=== PATIENT | male | born 1980 | race Caucasian/White ===

== ENCOUNTER 2016-11-03 01:16 | Inpatient (IN) | payer MEDICAID ==
[~2016-11-03] VITALS: Ht 170.2 cm; Wt 93.8 kg
[2016-11-03 02:25] LABS: BASOPHILS % (AUTO) 0.5 % (0.0-2.0); EOSINOPHILS % (AUTO) 5.8 % (1.0-6.0); HEMATOCRIT 34.9 % (41-53); HEMOGLOBIN 11.6 g/dL (13.5-17.5); LYMPHOCYTES # (AUTO) 2.5 K/uL (1.0-4.8); LYMPHOCYTES % (AUTO) 27.1 % (22.0-44.0); MEAN CORPUSCULAR HEMOGLOBIN 28.6 pg (26.0-34.0); MEAN CORPUSCULAR HGB CONC 33.3 G/dL (31.0-37.0); MEAN CORPUSCULAR VOLUME 86 fL (80-100); MONOCYTES # (AUTO) 0.6 K/uL (0.1-1.0); MONOCYTES % (AUTO) 6.3 % (2.0-9.0); NEUTROPHILS # (AUTO) 5.5 K/uL (1.8-7.7); NEUTROPHILS % (AUTO) 60.3 % (40.0-70.0); PLATELET COUNT (AUTO) 430 K/uL (150-450); RED BLOOD CELL COUNT(AUTO) 4.06 MIL/uL (4.50-5.90); RED CELL DISTRIBUTION WIDTH 12.9 % (11.5-14.5); WHITE BLOOD COUNT (AUTO) 9.1 K/uL (4.5-11.0)
[2016-11-03 02:34] LABS: PROTHROMBIN TIME 10.2 SEC (9.4-11.6)
[2016-11-03 02:40] LABS: CALCIUM, TOTAL 7.7 mg/dL (8.8-10.5); CREATININE 4.87 mg/dL (0.60-1.30); POTASSIUM 3.4 mmol/L (3.5-5.1)
[2016-11-03] MEDS ORDERED: HydrALAZINE HCL 20 MG/ML VIAL IVP ONE (03:00)
[2016-11-03 03:03] LABS: ALBUMIN 2.4 g/dL (3.4-5.0); BILIRUBIN,TOTAL 0.2 mg/dL (0.1-1.0); CREATINE KINASE MB 12.7 ng/mL (0-5); TOTAL PROTEIN, SERUM 6.2 g/dL (6.4-8.2)
[2016-11-03 04:08] LABS: APPEARANCE,URINE CLOUDY (CLEAR); GLUCOSE, URINE (UA) 100 mg/dL (NEGATIVE); KETONES,URINE NEGATIVE (NEGATIVE); LEUKOCYTE ESTERASE ,URINE NEGATIVE (NEGATIVE); OCCULT BLOOD,URINE LARGE (NEGATIVE); PROTEIN,URINE SEE CONFIRM (NEGATIVE)
[2016-11-03 04:11] LABS: ADD UA MICROSCOPIC YES
[2016-11-03] MEDS ORDERED: AZITHROMYCIN 500 MG/NS 250 ML IV ONE (04:15)
[2016-11-03] MEDS ORDERED: CefTRIAXone 1 GM/DEXTROSE 50 ML IV ONE (04:15)
[2016-11-03 04:27] LABS: RBC,URINE 26-50 /HPF (0-2)
[2016-11-03] MEDS ORDERED: ONDANSETRON HCL 4 MG/2 ML VIAL IVP PRN ×2 (04:30→07:00)
[2016-11-03] MEDS ORDERED: ACETAMINOPHEN 325 MG TABLET PO PRN (04:30)
[2016-11-03 04:34] LABS: SULFOSALICYLIC ACID,URINE 2+ (Negative)
[2016-11-03] MEDS ORDERED: 0.9% SODIUM CHLORIDE 10 ML SYRINGE IVP PRN (07:00)
[2016-11-03] MEDS ORDERED: OxyCODONE HCL/ACETAMINOPHEN 5-325 MG TABLET PO PRN ×2 (07:00)
[2016-11-03] MEDS: PANTOPRAZOLE SODIUM 40 MG/VIAL IVP SCH (08:38)
[2016-11-03] MEDS: DOCUSATE SODIUM 100 MG CAPSULE PO SCH ×2 (08:38→21:00)
[2016-11-03 20:58] VITALS: BP 155/112
[2016-11-03] MEDS ORDERED: AmLODIPine BESYLATE 5 MG TABLET PO SCH (21:30)
[2016-11-03 23:53] VITALS: BP 149/108
[2016-11-04] MEDS ORDERED: SODIUM CHLORIDE 0.9% 250 ML IV ONE (02:27)
[2016-11-04] MEDS: CefTRIAXone 1 GM/DEXTROSE 50 ML IV SCH (03:12)
[2016-11-04] MEDS: AZITHROMYCIN 500 MG/NS 250 ML IV SCH (04:22)
[2016-11-04 04:58] VITALS: BP 138/90
[2016-11-04 06:42] LABS: CALCIUM, TOTAL 8.2 mg/dL (8.8-10.5); CREATININE 4.23 mg/dL (0.60-1.30); POTASSIUM 3.6 mmol/L (3.5-5.1)
[2016-11-04 06:45] LABS: BASOPHILS % (AUTO) 0.4 % (0.0-2.0); EOSINOPHILS % (AUTO) 2.3 % (1.0-6.0); HEMOGLOBIN 11.8 g/dL (13.5-17.5); LYMPHOCYTES # (AUTO) 2.1 K/uL (1.0-4.8); LYMPHOCYTES % (AUTO) 18.4 % (22.0-44.0); MEAN CORPUSCULAR HEMOGLOBIN 28.6 pg (26.0-34.0); MEAN CORPUSCULAR HGB CONC 32.8 G/dL (31.0-37.0); MEAN CORPUSCULAR VOLUME 87 fL (80-100); MONOCYTES # (AUTO) 0.7 K/uL (0.1-1.0); MONOCYTES % (AUTO) 6.4 % (2.0-9.0); NEUTROPHILS # (AUTO) 8.1 K/uL (1.8-7.7); NEUTROPHILS % (AUTO) 72.5 % (40.0-70.0); PLATELET COUNT (AUTO) 446 K/uL (150-450); RED BLOOD CELL COUNT(AUTO) 4.12 MIL/uL (4.50-5.90); RED CELL DISTRIBUTION WIDTH 13.3 % (11.5-14.5); WHITE BLOOD COUNT (AUTO) 11.2 K/uL (4.5-11.0)
[2016-11-04 07:42] VITALS: BP 136/96
[2016-11-04] MEDS: DOCUSATE SODIUM 100 MG CAPSULE PO SCH ×2 (09:00→20:12)
[2016-11-04] MEDS: PANTOPRAZOLE SODIUM 40 MG/VIAL IVP SCH (09:30)
[2016-11-04] MEDS ORDERED: FentaNYL CITRATE-PF 100 MCG/2 ML VIAL ONE (11:46)
[2016-11-04] MEDS ORDERED: MIDAZOLAM HCL 2 MG/2 ML VIAL ONE (11:46)
[2016-11-04] MEDS ORDERED: GELATIN SPONGE,ABSORBABLE 12-7 MM TP ONE (11:46)
[2016-11-04] MEDS ORDERED: MIDAZOLAM HCL 2 MG/2 ML VIAL IVP ONE (11:52)
[2016-11-04] MEDS ORDERED: FentaNYL CITRATE-PF 100 MCG/2 ML VIAL IVP ONE (11:53)
[2016-11-04 12:59] VITALS: BP 166/109
[2016-11-04] MEDS ORDERED: AmLODIPine BESYLATE 5 MG TABLET PO ONE (13:00)
[2016-11-04] MEDS: MethylPREDNISolone SOD SUCC 1,000 MG in SODIUM CHLORIDE 0.9% 50 ML IV SCH (13:46)
[2016-11-04 16:01] VITALS: BP 146/106
[2016-11-04 19:15] VITALS: BP 150/100
[2016-11-04] MEDS: AmLODIPine BESYLATE 5 MG TABLET PO SCH (20:13)
[2016-11-05] VITALS (7 sets, daily range): BP systolic 129–162; BP diastolic 79–101
[2016-11-05] MEDS: CefTRIAXone 1 GM/DEXTROSE 50 ML IV SCH (03:51)
[2016-11-05] MEDS: AZITHROMYCIN 500 MG/NS 250 ML IV SCH (04:52)
[2016-11-05 06:44] LABS: EOSINOPHILS % (AUTO) 0 % (1.0-6.0); HEMATOCRIT 37.1 % (41-53); HEMOGLOBIN 12.3 g/dL (13.5-17.5); LYMPHOCYTES # (AUTO) 0.8 K/uL (1.0-4.8); LYMPHOCYTES % (AUTO) 7.2 % (22.0-44.0); MEAN CORPUSCULAR HEMOGLOBIN 28.6 pg (26.0-34.0); MEAN CORPUSCULAR HGB CONC 33.1 G/dL (31.0-37.0); MEAN CORPUSCULAR VOLUME 86 fL (80-100); MONOCYTES # (AUTO) 0.1 K/uL (0.1-1.0); MONOCYTES % (AUTO) 0.6 % (2.0-9.0); NEUTROPHILS # (AUTO) 10.9 K/uL (1.8-7.7); PLATELET COUNT (AUTO) 454 K/uL (150-450); RED CELL DISTRIBUTION WIDTH 13.1 % (11.5-14.5); WHITE BLOOD COUNT (AUTO) 11.8 K/uL (4.5-11.0)
[2016-11-05 07:14] LABS: NEUTROPHILS % (AUTO) 92.2 % (40.0-70.0); RBC MORPHOLOGY COMMENT NORMAL RBC MORPH
[2016-11-05 07:24] LABS: ALBUMIN 2.5 g/dL (3.4-5.0); BILIRUBIN,TOTAL 0.2 mg/dL (0.1-1.0); CALCIUM, TOTAL 8.4 mg/dL (8.8-10.5); CREATININE 4.52 mg/dL (0.60-1.30); MAGNESIUM 2.2 mg/dL (1.80-2.40); PHOSPHORUS 5.9 mg/dL (2.5-4.9); POTASSIUM 3.9 mmol/L (3.5-5.1); TOTAL PROTEIN, SERUM 6.5 g/dL (6.4-8.2)
[2016-11-05] MEDS: AmLODIPine BESYLATE 5 MG TABLET PO SCH ×2 (08:20→20:35)
[2016-11-05] MEDS: DOCUSATE SODIUM 100 MG CAPSULE PO SCH ×2 (08:23→20:23)
[2016-11-05] MEDS: PANTOPRAZOLE SODIUM 40 MG/VIAL IVP SCH (08:24)
[2016-11-05] MEDS: MethylPREDNISolone SOD SUCC 1,000 MG in SODIUM CHLORIDE 0.9% 50 ML IV SCH (13:03)
[2016-11-06] VITALS (7 sets, daily range): BP systolic 122–147; BP diastolic 64–92
[2016-11-06] MEDS: AZITHROMYCIN 500 MG/NS 250 ML IV SCH (03:08)
[2016-11-06] MEDS: CefTRIAXone 1 GM/DEXTROSE 50 ML IV SCH (03:08)
[2016-11-06 06:13] LABS: COMPLEMENT C3 145 mg/dL (82-167); COMPLEMENT C4 29 mg/dL (14-44)
[2016-11-06 06:46] LABS: BASOPHILS # (AUTO) 0.02 K/uL (0.00-0.20); BASOPHILS % (AUTO) 0.1 % (0.0-2.0); EOSINOPHILS % (AUTO) 0 % (1.0-6.0); HEMATOCRIT 34.8 % (41-53); HEMOGLOBIN 11.8 g/dL (13.5-17.5); LYMPHOCYTES # (AUTO) 0.8 K/uL (1.0-4.8); LYMPHOCYTES % (AUTO) 4.5 % (22.0-44.0); MEAN CORPUSCULAR HEMOGLOBIN 28.9 pg (26.0-34.0); MEAN CORPUSCULAR HGB CONC 33.8 G/dL (31.0-37.0); MEAN CORPUSCULAR VOLUME 85 fL (80-100); MONOCYTES # (AUTO) 0.4 K/uL (0.1-1.0); MONOCYTES % (AUTO) 2.1 % (2.0-9.0); NEUTROPHILS # (AUTO) 16.6 K/uL (1.8-7.7); NEUTROPHILS % (AUTO) 93.3 % (40.0-70.0); PLATELET COUNT (AUTO) 475 K/uL (150-450); RED BLOOD CELL COUNT(AUTO) 4.08 MIL/uL (4.50-5.90); RED CELL DISTRIBUTION WIDTH 13.7 % (11.5-14.5); WHITE BLOOD COUNT (AUTO) 17.8 K/uL (4.5-11.0)
[2016-11-06 06:52] LABS: CALCIUM, TOTAL 8.4 mg/dL (8.8-10.5); CREATININE 4.57 mg/dL (0.60-1.30); MAGNESIUM 2.3 mg/dL (1.80-2.40); PHOSPHORUS 7.1 mg/dL (2.5-4.9); POTASSIUM 4.4 mmol/L (3.5-5.1)
[2016-11-06] MEDS: DOCUSATE SODIUM 100 MG CAPSULE PO SCH ×2 (08:38→20:26)
[2016-11-06] MEDS: PANTOPRAZOLE SODIUM 40 MG/VIAL IVP SCH (08:38)
[2016-11-06] MEDS: AmLODIPine BESYLATE 5 MG TABLET PO SCH ×2 (08:38→20:27)
[2016-11-06] MEDS: LABETALOL HCL 100 MG TABLET PO SCH ×2 (10:49→20:27)
[2016-11-06] MEDS: MethylPREDNISolone SOD SUCC 1,000 MG in SODIUM CHLORIDE 0.9% 50 ML IV SCH (12:18)
[2016-11-06 16:04] LABS: ANTI NUCLEAR AB,DIRECT(SCREEN) Negative (Negative)
[2016-11-07] MEDS: AZITHROMYCIN 500 MG/NS 250 ML IV SCH (03:45)
[2016-11-07] MEDS: CefTRIAXone 1 GM/DEXTROSE 50 ML IV SCH (03:45)
[2016-11-07 05:06] VITALS: BP 123/78
[2016-11-07 06:58] LABS: BASOPHILS % (AUTO) 0.3 % (0.0-2.0); EOSINOPHILS % (AUTO) 0 % (1.0-6.0); HEMATOCRIT 34.2 % (41-53); HEMOGLOBIN 11.2 g/dL (13.5-17.5); LYMPHOCYTES # (AUTO) 0.7 K/uL (1.0-4.8); LYMPHOCYTES % (AUTO) 4.9 % (22.0-44.0); MEAN CORPUSCULAR HEMOGLOBIN 28.7 pg (26.0-34.0); MEAN CORPUSCULAR HGB CONC 32.9 G/dL (31.0-37.0); MEAN CORPUSCULAR VOLUME 87 fL (80-100); MONOCYTES # (AUTO) 0.4 K/uL (0.1-1.0); MONOCYTES % (AUTO) 2.8 % (2.0-9.0); NEUTROPHILS # (AUTO) 12.3 K/uL (1.8-7.7); PLATELET COUNT (AUTO) 445 K/uL (150-450); RED BLOOD CELL COUNT(AUTO) 3.92 MIL/uL (4.50-5.90); RED CELL DISTRIBUTION WIDTH 13.1 % (11.5-14.5); WHITE BLOOD COUNT (AUTO) 13.4 K/uL (4.5-11.0)
[2016-11-07 07:07] LABS: CALCIUM, TOTAL 7.7 mg/dL (8.8-10.5); CREATININE 4.42 mg/dL (0.60-1.30); MAGNESIUM 2.4 mg/dL (1.80-2.40); PHOSPHORUS 8.1 mg/dL (2.5-4.9)
[2016-11-07 07:45] VITALS: BP 115/62
[2016-11-07] MEDS: AmLODIPine BESYLATE 5 MG TABLET PO SCH (08:40)
[2016-11-07] MEDS: DOCUSATE SODIUM 100 MG CAPSULE PO SCH ×2 (08:40→21:00)
[2016-11-07] MEDS: PANTOPRAZOLE SODIUM 40 MG/VIAL IVP SCH (08:40)
[2016-11-07] MEDS: LABETALOL HCL 100 MG TABLET PO SCH ×2 (08:40→21:01)
[2016-11-07 11:34] VITALS: BP 125/77
[2016-11-07] MEDS: PredniSONE 20 MG TABLET PO SCH (13:12)
[2016-11-07 15:14] LABS: ATYPICAL P-ANCA AB <1:20 titer (Neg:<1:20); CYTOPLASMIC (C-ANCA) AB, IGG <1:20 titer (Neg:<1:20); PERINUCLEAR (P-ANCA) IGG AB <1:20 titer (Neg:<1:20)
[2016-11-07 15:25] VITALS: BP 126/80
[2016-11-07 19:38] VITALS: BP 132/86
[2016-11-08 00:09] VITALS: BP 125/82
[2016-11-08 04:22] VITALS: BP 124/76
[2016-11-08] MEDS: AZITHROMYCIN 500 MG/NS 250 ML IV SCH (04:46)
[2016-11-08] MEDS: CefTRIAXone 1 GM/DEXTROSE 50 ML IV SCH (04:46)
[2016-11-08 08:00] VITALS: BP 164/86
[2016-11-08] MEDS ORDERED: AmLODIPine BESYLATE 5 MG TABLET PO SCH (09:00)
[2016-11-08 09:09] LABS: CALCIUM, TOTAL 7.3 mg/dL (8.8-10.5); CREATININE 3.55 mg/dL (0.60-1.30); MAGNESIUM 2.3 mg/dL (1.80-2.40); POTASSIUM 3.5 mmol/L (3.5-5.1)
[2016-11-08] MEDS: DOCUSATE SODIUM 100 MG CAPSULE PO SCH ×2 (09:43→20:19)
[2016-11-08] MEDS: PANTOPRAZOLE SODIUM 40 MG/VIAL IVP SCH (09:43)
[2016-11-08] MEDS: LABETALOL HCL 100 MG TABLET PO SCH ×2 (09:43→20:18)
[2016-11-08] MEDS: PredniSONE 20 MG TABLET PO SCH (09:44)
[2016-11-08 10:59] VITALS: BP 136/75
[2016-11-08 15:14] VITALS: BP 136/74
[2016-11-08 19:37] VITALS: BP 140/83
[2016-11-08] MEDS: AmLODIPine BESYLATE 5 MG TABLET PO SCH (20:18)
[2016-11-09] VITALS (7 sets, daily range): BP systolic 137–146; BP diastolic 86–96
[2016-11-09] MEDS: CefTRIAXone 1 GM/DEXTROSE 50 ML IV SCH (03:11)
[2016-11-09] MEDS: AZITHROMYCIN 500 MG/NS 250 ML IV SCH (04:06)
[2016-11-09 07:41] LABS: CALCIUM, TOTAL 7.7 mg/dL (8.8-10.5); CREATININE 2.96 mg/dL (0.60-1.30); MAGNESIUM 2.2 mg/dL (1.80-2.40)
[2016-11-09] MEDS: DOCUSATE SODIUM 100 MG CAPSULE PO SCH ×2 (08:22→21:53)
[2016-11-09] MEDS: PANTOPRAZOLE SODIUM 40 MG/VIAL IVP SCH (08:22)
[2016-11-09] MEDS: LABETALOL HCL 100 MG TABLET PO SCH ×2 (08:22→21:53)
[2016-11-09] MEDS: PredniSONE 20 MG TABLET PO SCH (08:22)
[2016-11-09] MEDS: AmLODIPine BESYLATE 5 MG TABLET PO SCH ×2 (08:22→21:53)
[2016-11-10 00:07] VITALS: BP 149/71
[2016-11-10] MEDS: CefTRIAXone 1 GM/DEXTROSE 50 ML IV SCH (03:37)
[2016-11-10] MEDS: AZITHROMYCIN 500 MG/NS 250 ML IV SCH (03:38)
[2016-11-10 03:48] VITALS: BP 140/84
[2016-11-10 07:19] LABS: CALCIUM, TOTAL 7.5 mg/dL (8.8-10.5); CREATININE 2.74 mg/dL (0.60-1.30); MAGNESIUM 2.1 mg/dL (1.80-2.40); PHOSPHORUS 5.5 mg/dL (2.5-4.9); POTASSIUM 3.7 mmol/L (3.5-5.1)
[2016-11-10 08:11] VITALS: BP 139/94
[2016-11-10] MEDS ORDERED: MYCOPHENOLATE MOFETIL 250 MG CAPSULE PO SCH (09:00)
[2016-11-10] MEDS ORDERED: LOSARTAN POTASSIUM 25 MG TABLET PO SCH (09:00)
[2016-11-10] MEDS: PredniSONE 20 MG TABLET PO SCH (09:21)
[2016-11-10] MEDS: PANTOPRAZOLE SODIUM 40 MG/VIAL IVP SCH (09:21)
[2016-11-10] MEDS: DOCUSATE SODIUM 100 MG CAPSULE PO SCH (09:21)
[2016-11-10] MEDS: AmLODIPine BESYLATE 5 MG TABLET PO SCH (09:22)
[2016-11-10] MEDS: LABETALOL HCL 100 MG TABLET PO SCH (09:22)
[2016-11-10 10:12] LABS: GBM IGA ANTIBODY (IFA) < 1:10 titer
[2016-11-10 12:00] VITALS: BP 134/78
[2016-11-10] MEDS ORDERED: AMLO-511 PO (15:13)
[2016-11-10] MEDS ORDERED: MYCO250C7 PO (15:14)
[2016-11-10] MEDS ORDERED: LABE100 PO (15:14)
[2016-11-10] MEDS ORDERED: LOSA25TA21 PO (15:14)
[2016-11-10] MEDS ORDERED: PRED20 PO (15:15)
[2016-11-10] MEDS ORDERED: CIPR-278 PO (15:17)
== END 2016-11-10 16:10 | disposition home or self-care (01) | DRG 139 ==
LOC: EMS 01:18 → 5N 19:30 → 4E 11-09 14:16
PROVIDERS: ADMIT Internal Medicine; ATTEND Internal Medicine
PROC: 0TB03ZX Excision of Right Kidney, Percutaneous Approach, Diagnostic (ICD-10-PCS; principal; 2016-11-04)
DX: J18.0 Bronchopneumonia, unspecified organism (principal); N17.9 Acute kidney failure, unspecified; E44.0 Moderate protein-calorie malnutrition; M31.0 Hypersensitivity angiitis; I13.0 Hypertensive heart and chronic kidney disease with heart failure and stage 1 through stage 4 chronic kidney disease, or unspecified chronic kidney disease; I50.9 Heart failure, unspecified; E11.22 Type 2 diabetes mellitus with diabetic chronic kidney disease; N05.9 Unspecified nephritic syndrome with unspecified morphologic changes; N26.9 Renal sclerosis, unspecified; R59.0 Localized enlarged lymph nodes; D64.9 Anemia, unspecified; N18.9 Chronic kidney disease, unspecified; F17.210 Nicotine dependence, cigarettes, uncomplicated; Z83.3 Family history of diabetes mellitus; R04.2 Hemoptysis; R91.8 Other nonspecific abnormal finding of lung field; J40 Bronchitis, not specified as acute or chronic; Z68.32 Body mass index [BMI] 32.0-32.9, adult; E88.09 Other disorders of plasma-protein metabolism, not elsewhere classified; E87.6 Hypokalemia
CPT/HCPCS: 50200; 71250; 82570; 83735; 84100; 84156; 86038; 86063; 86160; 86162; 86255; 86256; 86706; 87015; 87040; 87081; 87340; 87902; 88300; 93005; 96365; 96368; 96375; 99285; C9113; J0360; J0456; J0696; J2250; J2930; J3010; J7050; J7517

== ENCOUNTER 2016-11-28 20:11 | Inpatient (IN) | payer MEDICAID ==
[~2016-11-28] VITALS: Ht 170.2 cm; Wt 91.0 kg
[~2016-11-28 20:11] MED LIST: AMLO-511 PO; CIPR-278 PO; LABE100 PO; MYCO250C7 PO; PRED20 PO
[2016-11-28] MEDS ORDERED: ESOM20CA31 PO (20:23)
[2016-11-28 20:43] LABS: BASOPHILS % (AUTO) 0.2 % (0.0-2.0); EOSINOPHILS % (AUTO) 0 % (1.0-6.0); HEMATOCRIT 32.5 % (41-53); HEMOGLOBIN 10.8 g/dL (13.5-17.5); LYMPHOCYTES # (AUTO) 0.3 K/uL (1.0-4.8); LYMPHOCYTES % (AUTO) 2.6 % (22.0-44.0); MEAN CORPUSCULAR HEMOGLOBIN 28.5 pg (26.0-34.0); MEAN CORPUSCULAR HGB CONC 33.2 G/dL (31.0-37.0); MEAN CORPUSCULAR VOLUME 86 fL (80-100); MONOCYTES # (AUTO) 0.5 K/uL (0.1-1.0); MONOCYTES % (AUTO) 4.6 % (2.0-9.0); NEUTROPHILS # (AUTO) 10.4 K/uL (1.8-7.7); PLATELET COUNT (AUTO) 194 K/uL (150-450); RED BLOOD CELL COUNT(AUTO) 3.79 MIL/uL (4.50-5.90); RED CELL DISTRIBUTION WIDTH 14.3 % (11.5-14.5); WHITE BLOOD COUNT (AUTO) 11.2 K/uL (4.5-11.0)
[2016-11-28 20:44] LABS: NEUTROPHILS % (AUTO) 92.6 % (40.0-70.0)
[2016-11-28 21:10] LABS: ALBUMIN 2.7 g/dL (3.4-5.0); BILIRUBIN,TOTAL 0.2 mg/dL (0.1-1.0); CALCIUM, TOTAL 7.9 mg/dL (8.8-10.5); CREATININE 3.63 mg/dL (0.60-1.30); POTASSIUM 5.1 mmol/L (3.5-5.1); TOTAL PROTEIN, SERUM 5.4 g/dL (6.4-8.2)
[2016-11-28] MEDS ORDERED: ONDANSETRON HCL 4 MG/2 ML VIAL IVP PRN (22:30)
[2016-11-28] MEDS ORDERED: 0.9% SODIUM CHLORIDE 10 ML SYRINGE IVP PRN (22:30)
[2016-11-28] MEDS ORDERED: ACETAMINOPHEN 325 MG TABLET PO PRN (22:30)
[2016-11-28] MEDS ORDERED: SODIUM BICARBONATE 150 MEQ in DEXTROSE 5%-WATER 1,000 ML IV ONE (22:30)
[2016-11-28 22:53] LABS: APPEARANCE,URINE CLOUDY (CLEAR); GLUCOSE, URINE (UA) 250 mg/dL (NEGATIVE); KETONES,URINE NEGATIVE (NEGATIVE); LEUKOCYTE ESTERASE ,URINE NEGATIVE (NEGATIVE); OCCULT BLOOD,URINE LARGE (NEGATIVE); PROTEIN,URINE SEE CONFIRM (NEGATIVE)
[2016-11-28 22:57] LABS: ADD UA MICROSCOPIC YES
[2016-11-28 23:13] LABS: COARSE GRANULAR CASTS,URINE 0-2 /LPF (None Seen); FINE GRANULAR CASTS,URINE 0-2 /LPF (None Seen)
[2016-11-28 23:15] LABS: SULFOSALICYLIC ACID,URINE 1+ (Negative)
[2016-11-29] VITALS (7 sets, daily range): BP systolic 127–143; BP diastolic 68–92
[2016-11-29] MEDS ORDERED: 0.9% SODIUM CHLORIDE 10 ML SYRINGE IVP PRN (04:15)
[2016-11-29] MEDS ORDERED: ONDANSETRON HCL 4 MG/2 ML VIAL IVP PRN (04:15)
[2016-11-29] MEDS ORDERED: ZOLPIDEM TARTRATE 5 MG TABLET PO PRN (04:15)
[2016-11-29] MEDS ORDERED: ACETAMINOPHEN 325 MG TABLET PO PRN (04:15)
[2016-11-29] MEDS ORDERED: BISACODYL 10 MG RECTAL RECTAL SUPPOSITORY PR PRN (04:15)
[2016-11-29] MEDS ORDERED: MAGNESIUM HYDROXIDE SUSPENSION 30 ML UDCUP PO PRN (04:15)
[2016-11-29] MEDS: ALBUMIN HUMAN 25%-25GM/100ML 100 ML IV SCH ×4 (06:20→23:11)
[2016-11-29 08:07] LABS: BASOPHILS % (AUTO) 0.1 % (0.0-2.0); EOSINOPHILS % (AUTO) 0 % (1.0-6.0); HEMATOCRIT 32.1 % (41-53); HEMOGLOBIN 10.7 g/dL (13.5-17.5); LYMPHOCYTES # (AUTO) 0.6 K/uL (1.0-4.8); LYMPHOCYTES % (AUTO) 6.1 % (22.0-44.0); MEAN CORPUSCULAR HEMOGLOBIN 28.7 pg (26.0-34.0); MEAN CORPUSCULAR HGB CONC 33.4 G/dL (31.0-37.0); MEAN CORPUSCULAR VOLUME 86 fL (80-100); MONOCYTES % (AUTO) 10.4 % (2.0-9.0); NEUTROPHILS # (AUTO) 8.3 K/uL (1.8-7.7); NEUTROPHILS % (AUTO) 83.4 % (40.0-70.0); PLATELET COUNT (AUTO) 181 K/uL (150-450); RED BLOOD CELL COUNT(AUTO) 3.74 MIL/uL (4.50-5.90); RED CELL DISTRIBUTION WIDTH 14.1 % (11.5-14.5)
[2016-11-29 08:23] LABS: BILIRUBIN,TOTAL 0.3 mg/dL (0.1-1.0); CALCIUM, TOTAL 8.3 mg/dL (8.8-10.5); CREATININE 3.31 mg/dL (0.60-1.30); PHOSPHORUS 7.6 mg/dL (2.5-4.9); POTASSIUM 4.8 mmol/L (3.5-5.1); TOTAL PROTEIN, SERUM 5.7 g/dL (6.4-8.2)
[2016-11-29] MEDS: HEPARIN SODIUM,PORCINE 5,000 UNITS/ML VIAL SQ SCH ×3 (08:50→23:11)
[2016-11-29] MEDS: MYCOPHENOLATE MOFETIL 250 MG CAPSULE PO SCH ×2 (08:51→20:59)
[2016-11-29] MEDS: PredniSONE 20 MG TABLET PO SCH (08:51)
[2016-11-29] MEDS: AmLODIPine BESYLATE 5 MG TABLET PO SCH ×2 (08:51→20:59)
[2016-11-29] MEDS: DOCUSATE SODIUM 100 MG CAPSULE PO SCH ×2 (08:51→20:59)
[2016-11-29] MEDS: PANTOPRAZOLE SODIUM 40 MG DR TABLET PO SCH (08:51)
[2016-11-29] MEDS: ESOMEPRAZOLE MAG TRIHYDRATE 20 MG CAPSULE PO SCH (08:52)
[2016-11-29] MEDS: LABETALOL HCL 100 MG TABLET PO SCH ×2 (08:52→20:59)
[2016-11-29] MEDS ORDERED: SODIUM BICARBONATE 150 MEQ in DEXTROSE 5%-0.45% SODIUM CHL 1,000 ML IV SCH (15:30)
[2016-11-29] MEDS: SODIUM BICARBONATE 150 MEQ in DEXTROSE 5%-WATER 1,000 ML IV SCH (16:15)
[2016-11-29 17:41] LABS: CALCIUM, TOTAL 7.9 mg/dL (8.8-10.5); CREATININE 3.47 mg/dL (0.60-1.30); MAGNESIUM 1.9 mg/dL (1.80-2.40); PHOSPHORUS 6.5 mg/dL (2.5-4.9); POTASSIUM 4.6 mmol/L (3.5-5.1)
[2016-11-30 05:10] VITALS: BP 128/84
[2016-11-30] MEDS: ALBUMIN HUMAN 25%-25GM/100ML 100 ML IV SCH ×3 (06:16→19:55)
[2016-11-30 08:36] VITALS: BP 113/80
[2016-11-30] MEDS: PANTOPRAZOLE SODIUM 40 MG DR TABLET PO SCH (08:54)
[2016-11-30] MEDS: HEPARIN SODIUM,PORCINE 5,000 UNITS/ML VIAL SQ SCH ×2 (08:54→16:09)
[2016-11-30] MEDS: PredniSONE 20 MG TABLET PO SCH (08:55)
[2016-11-30] MEDS: LABETALOL HCL 100 MG TABLET PO SCH ×2 (08:55→19:55)
[2016-11-30] MEDS: AmLODIPine BESYLATE 5 MG TABLET PO SCH ×2 (08:55→19:55)
[2016-11-30] MEDS: MYCOPHENOLATE MOFETIL 250 MG CAPSULE PO SCH ×2 (08:55→19:55)
[2016-11-30] MEDS: ESOMEPRAZOLE MAG TRIHYDRATE 20 MG CAPSULE PO SCH (08:55)
[2016-11-30] MEDS: DOCUSATE SODIUM 100 MG CAPSULE PO SCH ×2 (08:55→19:55)
[2016-11-30 09:51] LABS: BASOPHILS % (AUTO) 0.3 % (0.0-2.0); EOSINOPHILS % (AUTO) 0.8 % (1.0-6.0); HEMATOCRIT 28.4 % (41-53); HEMOGLOBIN 9.3 g/dL (13.5-17.5); LYMPHOCYTES # (AUTO) 1.7 K/uL (1.0-4.8); MEAN CORPUSCULAR HEMOGLOBIN 28.4 pg (26.0-34.0); MEAN CORPUSCULAR HGB CONC 32.8 G/dL (31.0-37.0); MEAN CORPUSCULAR VOLUME 87 fL (80-100); MONOCYTES # (AUTO) 1.1 K/uL (0.1-1.0); MONOCYTES % (AUTO) 10.2 % (2.0-9.0); NEUTROPHILS # (AUTO) 8.2 K/uL (1.8-7.7); NEUTROPHILS % (AUTO) 73.7 % (40.0-70.0); PLATELET COUNT (AUTO) 149 K/uL (150-450); RED BLOOD CELL COUNT(AUTO) 3.29 MIL/uL (4.50-5.90); RED CELL DISTRIBUTION WIDTH 13.9 % (11.5-14.5); WHITE BLOOD COUNT (AUTO) 11.2 K/uL (4.5-11.0)
[2016-11-30 10:12] LABS: ALBUMIN 3.3 g/dL (3.4-5.0); BILIRUBIN,TOTAL 0.4 mg/dL (0.1-1.0); CALCIUM, TOTAL 7.8 mg/dL (8.8-10.5); CREATININE 2.97 mg/dL (0.60-1.30); MAGNESIUM 1.8 mg/dL (1.80-2.40); PHOSPHORUS 5.8 mg/dL (2.5-4.9); POTASSIUM 3.8 mmol/L (3.5-5.1); TOTAL PROTEIN, SERUM 5.1 g/dL (6.4-8.2)
[2016-11-30 11:56] VITALS: BP 133/75
[2016-11-30 15:51] VITALS: BP_SYST 133; BP_SYST 143; BP_DIAS 78; BP_DIAS 90
[2016-11-30 19:31] VITALS: BP 132/82
[2016-11-30 23:00] VITALS: BP 130/72
[2016-12-01] MEDS: SODIUM BICARBONATE 150 MEQ in DEXTROSE 5%-WATER 1,000 ML IV SCH ×2 (00:02→22:25)
[2016-12-01] MEDS: HEPARIN SODIUM,PORCINE 5,000 UNITS/ML VIAL SQ SCH ×4 (00:02→23:28)
[2016-12-01] MEDS: ALBUMIN HUMAN 25%-25GM/100ML 100 ML IV SCH ×5 (00:02→23:28)
[2016-12-01 04:32] VITALS: BP 130/73
[2016-12-01 07:28] VITALS: BP 131/69
[2016-12-01 07:41] LABS: BASOPHILS # (AUTO) 0.02 K/uL (0.00-0.20); BASOPHILS % (AUTO) 0.2 % (0.0-2.0); EOSINOPHILS # (AUTO) 0.09 K/uL (0.00-0.70); EOSINOPHILS % (AUTO) 0.95 % (1.0-6.0); HEMATOCRIT 26.6 % (41-53); HEMOGLOBIN 8.9 g/dL (13.5-17.5); LYMPHOCYTES % (AUTO) 11.5 % (22.0-44.0); MEAN CORPUSCULAR HEMOGLOBIN 28.6 pg (26.0-34.0); MEAN CORPUSCULAR HGB CONC 33.6 G/dL (31.0-37.0); MEAN CORPUSCULAR VOLUME 85 fL (80-100); MONOCYTES # (AUTO) 0.9 K/uL (0.1-1.0); MONOCYTES % (AUTO) 10.3 % (2.0-9.0); NEUTROPHILS % (AUTO) 77.2 % (40.0-70.0); PLATELET COUNT (AUTO) 140 K/uL (150-450); RED BLOOD CELL COUNT(AUTO) 3.13 MIL/uL (4.50-5.90); WHITE BLOOD COUNT (AUTO) 9.1 K/uL (4.5-11.0)
[2016-12-01 08:12] LABS: ALBUMIN 3.8 g/dL (3.4-5.0); BILIRUBIN,TOTAL 0.4 mg/dL (0.1-1.0); CALCIUM, TOTAL 8.1 mg/dL (8.8-10.5); CREATININE 2.77 mg/dL (0.60-1.30); PHOSPHORUS 5.2 mg/dL (2.5-4.9); POTASSIUM 3.7 mmol/L (3.5-5.1); TOTAL PROTEIN, SERUM 5.5 g/dL (6.4-8.2)
[2016-12-01] MEDS: MYCOPHENOLATE MOFETIL 250 MG CAPSULE PO SCH ×2 (08:41→20:36)
[2016-12-01] MEDS: PANTOPRAZOLE SODIUM 40 MG DR TABLET PO SCH (08:41)
[2016-12-01] MEDS: LABETALOL HCL 100 MG TABLET PO SCH ×2 (08:41→20:35)
[2016-12-01] MEDS: DOCUSATE SODIUM 100 MG CAPSULE PO SCH ×2 (08:41→20:35)
[2016-12-01] MEDS: PredniSONE 20 MG TABLET PO SCH (08:41)
[2016-12-01] MEDS: ESOMEPRAZOLE MAG TRIHYDRATE 20 MG CAPSULE PO SCH (08:41)
[2016-12-01] MEDS: AmLODIPine BESYLATE 5 MG TABLET PO SCH ×2 (08:41→20:35)
[2016-12-01 12:03] VITALS: BP 124/76
[2016-12-01 15:17] VITALS: BP 131/73
[2016-12-01 19:44] VITALS: BP 144/92
[2016-12-02] VITALS (7 sets, daily range): BP systolic 124–142; BP diastolic 73–87
[2016-12-02] MEDS: ALBUMIN HUMAN 25%-25GM/100ML 100 ML IV SCH ×4 (04:51→23:32)
[2016-12-02] MEDS: ESOMEPRAZOLE MAG TRIHYDRATE 20 MG CAPSULE PO SCH (09:08)
[2016-12-02] MEDS: MYCOPHENOLATE MOFETIL 250 MG CAPSULE PO SCH ×2 (09:08→20:12)
[2016-12-02] MEDS: LABETALOL HCL 100 MG TABLET PO SCH ×2 (09:08→20:12)
[2016-12-02] MEDS: PANTOPRAZOLE SODIUM 40 MG DR TABLET PO SCH (09:08)
[2016-12-02] MEDS: AmLODIPine BESYLATE 5 MG TABLET PO SCH ×2 (09:08→20:12)
[2016-12-02] MEDS: PredniSONE 20 MG TABLET PO SCH (09:09)
[2016-12-02] MEDS: DOCUSATE SODIUM 100 MG CAPSULE PO SCH ×2 (09:09→20:12)
[2016-12-02] MEDS: HEPARIN SODIUM,PORCINE 5,000 UNITS/ML VIAL SQ SCH ×3 (09:09→23:32)
[2016-12-02 11:22] LABS: BASOPHILS % (AUTO) 0.4 % (0.0-2.0); EOSINOPHILS % (AUTO) 1.7 % (1.0-6.0); HEMATOCRIT 27.2 % (41-53); LYMPHOCYTES # (AUTO) 0.8 K/uL (1.0-4.8); LYMPHOCYTES % (AUTO) 7.2 % (22.0-44.0); MEAN CORPUSCULAR HEMOGLOBIN 28.4 pg (26.0-34.0); MEAN CORPUSCULAR HGB CONC 33.2 G/dL (31.0-37.0); MEAN CORPUSCULAR VOLUME 86 fL (80-100); MONOCYTES # (AUTO) 0.9 K/uL (0.1-1.0); MONOCYTES % (AUTO) 7.5 % (2.0-9.0); NEUTROPHILS # (AUTO) 9.6 K/uL (1.8-7.7); NEUTROPHILS % (AUTO) 83.2 % (40.0-70.0); PLATELET COUNT (AUTO) 127 K/uL (150-450); RED BLOOD CELL COUNT(AUTO) 3.17 MIL/uL (4.50-5.90); RED CELL DISTRIBUTION WIDTH 13.6 % (11.5-14.5); WHITE BLOOD COUNT (AUTO) 11.5 K/uL (4.5-11.0)
[2016-12-02 11:31] LABS: CREATININE 2.91 mg/dL (0.60-1.30); POTASSIUM 3.3 mmol/L (3.5-5.1)
[2016-12-02 11:35] LABS: MAGNESIUM 1.8 mg/dL (1.80-2.40); PHOSPHORUS 4.4 mg/dL (2.5-4.9)
[2016-12-02] MEDS: SODIUM BICARBONATE 150 MEQ in DEXTROSE 5%-WATER 1,000 ML IV SCH (12:07)
[2016-12-02] MEDS: SODIUM CHLORIDE 0.9% 1,000 ML IV SCH (17:04)
[2016-12-03 04:30] VITALS: BP 117/61
[2016-12-03] MEDS: ALBUMIN HUMAN 25%-25GM/100ML 100 ML IV SCH ×4 (06:28→23:15)
[2016-12-03 06:48] LABS: BASOPHILS % (AUTO) 0.1 % (0.0-2.0); EOSINOPHILS % (AUTO) 1.7 % (1.0-6.0); HEMATOCRIT 27.1 % (41-53); HEMOGLOBIN 8.8 g/dL (13.5-17.5); LYMPHOCYTES # (AUTO) 1.2 K/uL (1.0-4.8); LYMPHOCYTES % (AUTO) 13.1 % (22.0-44.0); MEAN CORPUSCULAR HEMOGLOBIN 28.1 pg (26.0-34.0); MEAN CORPUSCULAR HGB CONC 32.5 G/dL (31.0-37.0); MEAN CORPUSCULAR VOLUME 87 fL (80-100); MONOCYTES # (AUTO) 0.7 K/uL (0.1-1.0); MONOCYTES % (AUTO) 7.4 % (2.0-9.0); NEUTROPHILS # (AUTO) 7.3 K/uL (1.8-7.7); NEUTROPHILS % (AUTO) 77.7 % (40.0-70.0); PLATELET COUNT (AUTO) 117 K/uL (150-450); RED BLOOD CELL COUNT(AUTO) 3.12 MIL/uL (4.50-5.90); RED CELL DISTRIBUTION WIDTH 13.7 % (11.5-14.5); WHITE BLOOD COUNT (AUTO) 9.4 K/uL (4.5-11.0)
[2016-12-03 07:15] VITALS: BP 140/73
[2016-12-03 07:26] LABS: CALCIUM, TOTAL 8.3 mg/dL (8.8-10.5); CREATININE 2.96 mg/dL (0.60-1.30); MAGNESIUM 1.8 mg/dL (1.80-2.40); PHOSPHORUS 4.5 mg/dL (2.5-4.9); POTASSIUM 3.6 mmol/L (3.5-5.1)
[2016-12-03] MEDS: ESOMEPRAZOLE MAG TRIHYDRATE 20 MG CAPSULE PO SCH (09:00)
[2016-12-03] MEDS: SODIUM CHLORIDE 0.9% 1,000 ML IV SCH ×2 (09:03→22:44)
[2016-12-03] MEDS: PANTOPRAZOLE SODIUM 40 MG DR TABLET PO SCH (09:07)
[2016-12-03] MEDS: PredniSONE 20 MG TABLET PO SCH (09:07)
[2016-12-03] MEDS: DOCUSATE SODIUM 100 MG CAPSULE PO SCH ×2 (09:07→20:39)
[2016-12-03] MEDS: MYCOPHENOLATE MOFETIL 250 MG CAPSULE PO SCH ×2 (09:08→20:39)
[2016-12-03] MEDS: LABETALOL HCL 100 MG TABLET PO SCH ×2 (09:10→20:39)
[2016-12-03] MEDS: HEPARIN SODIUM,PORCINE 5,000 UNITS/ML VIAL SQ SCH ×2 (09:10→20:38)
[2016-12-03] MEDS: AmLODIPine BESYLATE 5 MG TABLET PO SCH ×2 (09:10→20:39)
[2016-12-03 11:45] VITALS: BP 132/99
[2016-12-03 15:35] VITALS: BP 142/89
[2016-12-03 19:19] VITALS: BP 140/85
[2016-12-03 23:18] VITALS: BP 117/71
[2016-12-04 05:12] VITALS: BP 140/81
[2016-12-04] MEDS: ALBUMIN HUMAN 25%-25GM/100ML 100 ML IV SCH ×4 (05:46→23:56)
[2016-12-04 06:02] LABS: BASOPHILS % (AUTO) 0.1 % (0.0-2.0); EOSINOPHILS % (AUTO) 0.5 % (1.0-6.0); HEMATOCRIT 24.8 % (41-53); HEMOGLOBIN 8.2 g/dL (13.5-17.5); LYMPHOCYTES # (AUTO) 0.8 K/uL (1.0-4.8); MEAN CORPUSCULAR HEMOGLOBIN 28.4 pg (26.0-34.0); MEAN CORPUSCULAR HGB CONC 33.1 G/dL (31.0-37.0); MEAN CORPUSCULAR VOLUME 86 fL (80-100); MONOCYTES # (AUTO) 0.7 K/uL (0.1-1.0); MONOCYTES % (AUTO) 8.3 % (2.0-9.0); NEUTROPHILS # (AUTO) 6.5 K/uL (1.8-7.7); NEUTROPHILS % (AUTO) 81.1 % (40.0-70.0); PLATELET COUNT (AUTO) 106 K/uL (150-450); RED BLOOD CELL COUNT(AUTO) 2.89 MIL/uL (4.50-5.90); RED CELL DISTRIBUTION WIDTH 13.8 % (11.5-14.5)
[2016-12-04 07:21] LABS: CALCIUM, TOTAL 8.3 mg/dL (8.8-10.5); CREATININE 3.1 mg/dL (0.60-1.30); MAGNESIUM 1.9 mg/dL (1.80-2.40); PHOSPHORUS 4.4 mg/dL (2.5-4.9); POTASSIUM 3.6 mmol/L (3.5-5.1)
[2016-12-04 07:51] VITALS: BP 145/76
[2016-12-04] MEDS: MYCOPHENOLATE MOFETIL 250 MG CAPSULE PO SCH ×2 (08:19→20:49)
[2016-12-04] MEDS: ESOMEPRAZOLE MAG TRIHYDRATE 20 MG CAPSULE PO SCH (08:19)
[2016-12-04] MEDS: HEPARIN SODIUM,PORCINE 5,000 UNITS/ML VIAL SQ SCH (08:20)
[2016-12-04] MEDS: DOCUSATE SODIUM 100 MG CAPSULE PO SCH ×2 (08:20→20:49)
[2016-12-04] MEDS: LABETALOL HCL 100 MG TABLET PO SCH ×2 (08:20→20:49)
[2016-12-04] MEDS: PANTOPRAZOLE SODIUM 40 MG DR TABLET PO SCH (08:20)
[2016-12-04] MEDS: AmLODIPine BESYLATE 5 MG TABLET PO SCH ×2 (08:20→20:49)
[2016-12-04] MEDS: PredniSONE 20 MG TABLET PO SCH (08:20)
[2016-12-04 11:15] VITALS: BP 116/69
[2016-12-04 16:22] VITALS: BP 145/89
[2016-12-04 19:37] VITALS: BP 147/99
[2016-12-04 23:06] VITALS: BP 108/74
[2016-12-05 05:11] VITALS: BP 130/76
[2016-12-05 06:04] LABS: EOSINOPHILS % (AUTO) 0.4 % (1.0-6.0); HEMATOCRIT 24.2 % (41-53); LYMPHOCYTES # (AUTO) 0.9 K/uL (1.0-4.8); MEAN CORPUSCULAR HEMOGLOBIN 28.1 pg (26.0-34.0); MEAN CORPUSCULAR VOLUME 85 fL (80-100); MONOCYTES # (AUTO) 0.7 K/uL (0.1-1.0); MONOCYTES % (AUTO) 7.7 % (2.0-9.0); NEUTROPHILS # (AUTO) 6.9 K/uL (1.8-7.7); NEUTROPHILS % (AUTO) 80.9 % (40.0-70.0); PLATELET COUNT (AUTO) 106 K/uL (150-450); RED BLOOD CELL COUNT(AUTO) 2.85 MIL/uL (4.50-5.90); RED CELL DISTRIBUTION WIDTH 13.7 % (11.5-14.5); WHITE BLOOD COUNT (AUTO) 8.6 K/uL (4.5-11.0)
[2016-12-05] MEDS: ALBUMIN HUMAN 25%-25GM/100ML 100 ML IV SCH ×4 (06:15→23:49)
[2016-12-05 06:37] LABS: CALCIUM, TOTAL 8.5 mg/dL (8.8-10.5); CREATININE 3.81 mg/dL (0.60-1.30); MAGNESIUM 1.8 mg/dL (1.80-2.40); PHOSPHORUS 4.5 mg/dL (2.5-4.9); POTASSIUM 3.5 mmol/L (3.5-5.1)
[2016-12-05 07:30] VITALS: BP 147/82
[2016-12-05] MEDS: MYCOPHENOLATE MOFETIL 250 MG CAPSULE PO SCH ×2 (09:06→20:35)
[2016-12-05] MEDS: PredniSONE 20 MG TABLET PO SCH (09:06)
[2016-12-05] MEDS: PANTOPRAZOLE SODIUM 40 MG DR TABLET PO SCH (09:06)
[2016-12-05] MEDS: ESOMEPRAZOLE MAG TRIHYDRATE 20 MG CAPSULE PO SCH (09:06)
[2016-12-05] MEDS: LABETALOL HCL 100 MG TABLET PO SCH ×2 (09:06→20:35)
[2016-12-05] MEDS: AmLODIPine BESYLATE 5 MG TABLET PO SCH ×2 (09:07→20:35)
[2016-12-05] MEDS: DOCUSATE SODIUM 100 MG CAPSULE PO SCH ×2 (09:07→20:36)
[2016-12-05 11:43] VITALS: BP 139/91
[2016-12-05] MEDS: SODIUM CHLORIDE 0.45% 1,000 ML IV SCH (12:00)
[2016-12-05] MEDS ORDERED: MIDAZOLAM HCL 2 MG/2 ML VIAL ONE (14:08)
[2016-12-05] MEDS ORDERED: LIDOCAINE HCL/PF 1% 30 ML VIAL ONE (14:08)
[2016-12-05] MEDS ORDERED: FentaNYL CITRATE-PF 100 MCG/2 ML VIAL ONE (14:08)
[2016-12-05] MEDS ORDERED: GELATIN SPONGE,ABSORBABLE 12-7 MM TP ONE (14:08)
[2016-12-05] MEDS ORDERED: MIDAZOLAM HCL 2 MG/2 ML VIAL IVP ONE (14:40)
[2016-12-05] MEDS ORDERED: FentaNYL CITRATE-PF 100 MCG/2 ML VIAL IVP ONE (14:40)
[2016-12-05 15:43] VITALS: BP 147/85
[2016-12-05 20:43] VITALS: BP 149/104
[2016-12-05] MEDS: CefTRIAXone 1 GM/DEXTROSE 50 ML IV SCH (23:11)
[2016-12-06] VITALS (7 sets, daily range): BP systolic 145–156; BP diastolic 90–99
[2016-12-06] MEDS: SODIUM CHLORIDE 0.45% 1,000 ML IV SCH ×3 (04:56→23:33)
[2016-12-06] MEDS: ALBUMIN HUMAN 25%-25GM/100ML 100 ML IV SCH ×4 (05:42→23:33)
[2016-12-06 06:12] LABS: HEMATOCRIT 22.3 % (41-53); HEMOGLOBIN 7.4 g/dL (13.5-17.5); MEAN CORPUSCULAR HEMOGLOBIN 28.3 pg (26.0-34.0); MEAN CORPUSCULAR HGB CONC 33.3 G/dL (31.0-37.0); MEAN CORPUSCULAR VOLUME 85 fL (80-100); PLATELET COUNT (AUTO) 102 K/uL (150-450); RED BLOOD CELL COUNT(AUTO) 2.62 MIL/uL (4.50-5.90); RED CELL DISTRIBUTION WIDTH 13.7 % (11.5-14.5); WHITE BLOOD COUNT (AUTO) 8.7 K/uL (4.5-11.0)
[2016-12-06 06:34] LABS: CALCIUM, TOTAL 8.2 mg/dL (8.8-10.5); CREATININE 4.1 mg/dL (0.60-1.30); POTASSIUM 3.4 mmol/L (3.5-5.1)
[2016-12-06] MEDS: DOCUSATE SODIUM 100 MG CAPSULE PO SCH ×2 (08:24→20:36)
[2016-12-06] MEDS: PANTOPRAZOLE SODIUM 40 MG DR TABLET PO SCH (08:24)
[2016-12-06] MEDS: PredniSONE 20 MG TABLET PO SCH (08:24)
[2016-12-06] MEDS: LABETALOL HCL 100 MG TABLET PO SCH ×2 (08:25→20:36)
[2016-12-06] MEDS: MYCOPHENOLATE MOFETIL 250 MG CAPSULE PO SCH ×2 (08:25→20:36)
[2016-12-06] MEDS: AmLODIPine BESYLATE 5 MG TABLET PO SCH ×2 (08:25→20:36)
[2016-12-06] MEDS: ESOMEPRAZOLE MAG TRIHYDRATE 20 MG CAPSULE PO SCH (08:25)
[2016-12-06 08:29] LABS: BAND NEUTROPHILS % (MANUAL) 7 % (1-5); LYMPHOCYTES % (MANUAL) 9 % (22-44); TOTAL CELLS COUNTED 100
[2016-12-06 13:22] LABS: HEMATOCRIT 23.9 % (41-53); HEMOGLOBIN 7.8 g/dL (13.5-17.5)
[2016-12-06] MEDS: AZITHROMYCIN 250 MG TABLET PO SCH (17:46)
[2016-12-06] MEDS: FERROUS SULFATE 325 MG EC TABLET PO SCH (17:46)
[2016-12-06] MEDS: CefTRIAXone 1 GM/DEXTROSE 50 ML IV SCH (23:33)
[2016-12-07] VITALS (24 sets, daily range): BP systolic 140–171; BP diastolic 70–111
[2016-12-07] MEDS: SODIUM CHLORIDE 0.45% 1,000 ML IV SCH ×3 (03:00→19:00)
[2016-12-07] MEDS: ALBUMIN HUMAN 25%-25GM/100ML 100 ML IV SCH ×3 (05:41→20:30)
[2016-12-07 06:39] LABS: BASOPHILS % (AUTO) 0.3 % (0.0-2.0); EOSINOPHILS % (AUTO) 0.3 % (1.0-6.0); LYMPHOCYTES # (AUTO) 0.7 K/uL (1.0-4.8); LYMPHOCYTES % (AUTO) 9.5 % (22.0-44.0); MEAN CORPUSCULAR HEMOGLOBIN 28.3 pg (26.0-34.0); MEAN CORPUSCULAR VOLUME 86 fL (80-100); MONOCYTES # (AUTO) 0.5 K/uL (0.1-1.0); MONOCYTES % (AUTO) 6.3 % (2.0-9.0); NEUTROPHILS # (AUTO) 6.1 K/uL (1.8-7.7); NEUTROPHILS % (AUTO) 83.6 % (40.0-70.0); PLATELET COUNT (AUTO) 102 K/uL (150-450); RED BLOOD CELL COUNT(AUTO) 2.42 MIL/uL (4.50-5.90); RED CELL DISTRIBUTION WIDTH 13.8 % (11.5-14.5); WHITE BLOOD COUNT (AUTO) 7.3 K/uL (4.5-11.0)
[2016-12-07 06:40] LABS: INFLUENZA TYPE B NEGATIVE FOR TYPE B (NEGATIVE)
[2016-12-07 06:59] LABS: HEMOGLOBIN 6.9 g/dL (13.5-17.5)
[2016-12-07 07:00] LABS: HEMATOCRIT 20.8 % (41-53)
[2016-12-07] MEDS ORDERED: FUROSEMIDE 20 MG/2 ML VIAL IVP PRN ×2 (07:30→12:00)
[2016-12-07] MEDS ORDERED: ACETAMINOPHEN 325 MG TABLET PO ONE (07:30)
[2016-12-07] MEDS ORDERED: DiphenhydrAMINE HCL 50 MG/ML VIAL IVP ONE (07:30)
[2016-12-07] MEDS ORDERED: SODIUM CHLORIDE 0.9% 1,000 ML IV ONE ×2 (07:43→22:40)
[2016-12-07] MEDS: FERROUS SULFATE 325 MG EC TABLET PO SCH ×2 (08:07→16:40)
[2016-12-07] MEDS: PredniSONE 20 MG TABLET PO SCH (08:07)
[2016-12-07] MEDS: MYCOPHENOLATE MOFETIL 250 MG CAPSULE PO SCH ×2 (08:09→20:46)
[2016-12-07] MEDS: DOCUSATE SODIUM 100 MG CAPSULE PO SCH ×2 (08:09→20:46)
[2016-12-07] MEDS: AmLODIPine BESYLATE 5 MG TABLET PO SCH ×2 (08:09→20:45)
[2016-12-07] MEDS: AZITHROMYCIN 250 MG TABLET PO SCH (08:09)
[2016-12-07] MEDS: LABETALOL HCL 100 MG TABLET PO SCH ×2 (08:10→20:46)
[2016-12-07] MEDS: PANTOPRAZOLE SODIUM 40 MG DR TABLET PO SCH (08:10)
[2016-12-07 08:58] LABS: CALCIUM, TOTAL 8.1 mg/dL (8.8-10.5); CREATININE 4.37 mg/dL (0.60-1.30); PHOSPHORUS 4.4 mg/dL (2.5-4.9); POTASSIUM 3.2 mmol/L (3.5-5.1)
[2016-12-07] MEDS ORDERED: DESMOPRESSIN ACETATE 4 MCG/ML VIAL IVP ONE (09:00)
[2016-12-07] MEDS ORDERED: ETOMIDATE 2 MG/ML 10 ML VIAL IVP ONE (12:00)
[2016-12-07] MEDS: HYDROCODONE/ACETAMINOPHEN 5-325 MG TABLET PO PRN (16:39)
[2016-12-07] MEDS: HydrALAZINE HCL 20 MG/ML VIAL IVP PRN (17:47)
[2016-12-07 20:48] LABS: EOSINOPHILS % (AUTO) 0 % (1.0-6.0); HEMATOCRIT 26.7 % (41-53); HEMOGLOBIN 8.9 g/dL (13.5-17.5); LYMPHOCYTES # (AUTO) 0.2 K/uL (1.0-4.8); LYMPHOCYTES % (AUTO) 2.1 % (22.0-44.0); MEAN CORPUSCULAR HEMOGLOBIN 28.5 pg (26.0-34.0); MEAN CORPUSCULAR HGB CONC 33.2 G/dL (31.0-37.0); MEAN CORPUSCULAR VOLUME 86 fL (80-100); MONOCYTES # (AUTO) 0.2 K/uL (0.1-1.0); MONOCYTES % (AUTO) 2.5 % (2.0-9.0); NEUTROPHILS # (AUTO) 9.1 K/uL (1.8-7.7); PLATELET COUNT (AUTO) 114 K/uL (150-450); RED BLOOD CELL COUNT(AUTO) 3.11 MIL/uL (4.50-5.90); RED CELL DISTRIBUTION WIDTH 13.7 % (11.5-14.5); WHITE BLOOD COUNT (AUTO) 9.6 K/uL (4.5-11.0)
[2016-12-07 20:49] LABS: NEUTROPHILS % (AUTO) 95.4 % (40.0-70.0)
[2016-12-07] MEDS ORDERED: PANTOPRAZOLE SODIUM 40 MG DR TABLET PO SCH (21:00)
[2016-12-07 21:01] LABS: RBC MORPHOLOGY COMMENT NORMAL RBC MORPH
[2016-12-07] MEDS: MORPHINE SULFATE 2 MG/ML SYRINGE IVP PRN (22:15)
[2016-12-07] MEDS ORDERED: LORazepam 2 MG/ML VIAL IVP ONE (23:45)
[2016-12-07] MEDS ORDERED: RAPID SEQUENCE KIT [RSI] 1 EACH KIT ONE ×2 (23:46)
[2016-12-07] MEDS ORDERED: SUCCINYLCHOLINE CHLORIDE 20 MG/ML 10 ML VIAL ONE (23:47)
[2016-12-08] VITALS (7 sets, daily range): BP systolic 123–190; BP diastolic 80–115
[2016-12-08] MEDS: MORPHINE SULFATE 2 MG/ML SYRINGE IVP PRN (01:15)
[2016-12-08 01:30] LABS: ABG A-A DIFF O2 423.2 mmHg (10-20.0); ABG BASE EXCESS -10.2 mmol/L (-2.0-3.0); ABG HCO3 16.8 mmol/L (22.0-26.0); ABG PCO2 41 mmHg (35-45); TEMPERATURE, FAHRENHEIT, BG 99.5 FAHREN (96.0-98.6)
[2016-12-08 01:31] LABS: ABG PH 7.241 (7.350-7.450); ALLEN TEST, BLOOD GAS POS
[2016-12-08] MEDS: CefTRIAXone 1 GM/DEXTROSE 50 ML IV SCH ×2 (01:33→23:09)
[2016-12-08] MEDS: SODIUM CHLORIDE 0.45% 1,000 ML IV SCH ×3 (01:33→11:31)
[2016-12-08] MEDS: ALBUMIN HUMAN 25%-25GM/100ML 100 ML IV SCH ×5 (01:33→23:49)
[2016-12-08] MEDS: PROPOFOL 1000 MG/ISO-OSM 100 ML IV PRN ×4 (01:35→20:41)
[2016-12-08] MEDS ORDERED: FentaNYL CITRATE PF 500 MCG in DEXTROSE 5%-WATER 90 ML IV PRN (01:55)
[2016-12-08] MEDS ORDERED: SODIUM BICARBONATE [ADULT] 8.4% 50 MEQ/50 ML SYRINGE IVP ONE (02:00)
[2016-12-08] MEDS: MIDAZOLAM HCL 100 MG in DEXTROSE 5%-WATER 180 ML IV PRN (02:38)
[2016-12-08 05:54] LABS: ALLEN TEST, BLOOD GAS Positive
[2016-12-08 05:55] LABS: ABG PCO2 29 mmHg (35-45); ABG PH 7.381 (7.350-7.450); TEMPERATURE, FAHRENHEIT, BG 98.5 FAHREN (96.0-98.6)
[2016-12-08 05:56] LABS: ABG BASE EXCESS -8.4 mmol/L (-2.0-3.0); ABG HCO3 18.3 mmol/L (22.0-26.0); ABG OXYHEMOGLOBIN 86.6 % (94.0-100.0)
[2016-12-08 05:57] LABS: ABG A-A DIFF O2 112.6 mmHg (10-20.0)
[2016-12-08 06:29] LABS: HEMATOCRIT 23.3 % (41-53); HEMOGLOBIN 7.7 g/dL (13.5-17.5); MEAN CORPUSCULAR HEMOGLOBIN 28.3 pg (26.0-34.0); MEAN CORPUSCULAR HGB CONC 32.9 G/dL (31.0-37.0); MEAN CORPUSCULAR VOLUME 86 fL (80-100); PLATELET COUNT (AUTO) 100 K/uL (150-450); RED BLOOD CELL COUNT(AUTO) 2.71 MIL/uL (4.50-5.90); RED CELL DISTRIBUTION WIDTH 13.9 % (11.5-14.5); WHITE BLOOD COUNT (AUTO) 9.7 K/uL (4.5-11.0)
[2016-12-08 06:39] LABS: CALCIUM, TOTAL 7.8 mg/dL (8.8-10.5); CREATININE 4.81 mg/dL (0.60-1.30); POTASSIUM 3.1 mmol/L (3.5-5.1)
[2016-12-08 08:39] LABS: BAND NEUTROPHILS % (MANUAL) 12 % (1-5); LYMPHOCYTES % (MANUAL) 14 % (22-44); RBC MORPHOLOGY COMMENT NORMAL RBC MORPH; TOTAL CELLS COUNTED 100
[2016-12-08 09:01] LABS: ABG A-A DIFF O2 225.8 mmHg (10-20.0); ABG BASE EXCESS -7.3 mmol/L (-2.0-3.0); ABG HCO3 19.1 mmol/L (22.0-26.0); ABG OXYHEMOGLOBIN 95.1 % (94.0-100.0); ABG PCO2 30 mmHg (35-45); ABG PH 7.385 (7.350-7.450); TEMPERATURE, FAHRENHEIT, BG 98.6 FAHREN (96.0-98.6)
[2016-12-08 09:02] LABS: ALLEN TEST, BLOOD GAS Positive
[2016-12-08] MEDS: AmLODIPine BESYLATE 5 MG TABLET PO SCH ×2 (09:06→20:40)
[2016-12-08] MEDS: DOCUSATE SODIUM 100 MG CAPSULE PO SCH ×2 (09:06→20:40)
[2016-12-08] MEDS: MYCOPHENOLATE MOFETIL 250 MG CAPSULE PO SCH (09:06)
[2016-12-08] MEDS: LABETALOL HCL 100 MG TABLET PO SCH ×2 (09:07→20:40)
[2016-12-08] MEDS: AZITHROMYCIN 250 MG TABLET PO SCH (09:07)
[2016-12-08] MEDS: FERROUS SULFATE 325 MG EC TABLET PO SCH ×2 (09:07→17:30)
[2016-12-08] MEDS: PANTOPRAZOLE SODIUM 40 MG/VIAL IVP SCH ×2 (09:07→20:40)
[2016-12-08 09:34] LABS: INR 1.1 (0.9-1.1); PARTIAL THROMBOPLASTIN TIME 39 SEC (25-35); PROTHROMBIN TIME 11.8 SEC (9.4-11.6)
[2016-12-08] MEDS ORDERED: SODIUM CHLORIDE 0.9% 500 ML IV ONE (10:29)
[2016-12-08] MEDS ORDERED: POTASSIUM CHL 10 MEQ/WATER 50 ML IV ONE (11:00)
[2016-12-08] MEDS: PredniSONE 20 MG TABLET PO SCH (11:31)
[2016-12-08] MEDS ORDERED: FUROSEMIDE 40 MG/4 ML VIAL IVP ONE (15:15)
[2016-12-08] MEDS ORDERED: LIDOCAINE HCL 4% 50 ML SOLUTION TP ONE (16:48)
[2016-12-08] MEDS ORDERED: LIDOCAINE HCL 2% 30 ML JELLY TP ONE (16:48)
[2016-12-08] MEDS ORDERED: EPINEPHrine 1:1,000 [1 MG/ML] AMP IM ONE (16:48)
[2016-12-08 17:47] LABS: CALCIUM, TOTAL 8.1 mg/dL (8.8-10.5); CREATININE 4.96 mg/dL (0.60-1.30); MAGNESIUM 1.8 mg/dL (1.80-2.40); PHOSPHORUS 5.8 mg/dL (2.5-4.9); POTASSIUM 3.6 mmol/L (3.5-5.1)
[2016-12-09] VITALS (9 sets, daily range): BP systolic 13–159; BP diastolic 76–101
[2016-12-09] MEDS: PROPOFOL 1000 MG/ISO-OSM 100 ML IV PRN ×6 (02:04→21:56)
[2016-12-09 04:13] LABS: HEPATITIS C AB SCREEN <0.1 s/co ratio (0.0-0.9)
[2016-12-09] MEDS: ALBUMIN HUMAN 25%-25GM/100ML 100 ML IV SCH (05:28)
[2016-12-09 05:51] LABS: EOSINOPHILS % (AUTO) 0.3 % (1.0-6.0); HEMOGLOBIN 7.5 g/dL (13.5-17.5); LYMPHOCYTES # (AUTO) 0.4 K/uL (1.0-4.8); LYMPHOCYTES % (AUTO) 8.9 % (22.0-44.0); MEAN CORPUSCULAR HGB CONC 32.7 G/dL (31.0-37.0); MEAN CORPUSCULAR VOLUME 86 fL (80-100); MONOCYTES # (AUTO) 0.3 K/uL (0.1-1.0); MONOCYTES % (AUTO) 5.7 % (2.0-9.0); NEUTROPHILS # (AUTO) 4.2 K/uL (1.8-7.7); NEUTROPHILS % (AUTO) 85.1 % (40.0-70.0); PLATELET COUNT (AUTO) 94 K/uL (150-450); RED BLOOD CELL COUNT(AUTO) 2.69 MIL/uL (4.50-5.90); RED CELL DISTRIBUTION WIDTH 14.2 % (11.5-14.5); WHITE BLOOD COUNT (AUTO) 4.9 K/uL (4.5-11.0)
[2016-12-09 05:55] LABS: IRON, SERUM 56 mcg/dL (50-175); TOTAL IRON BINDING CAPACITY 91 mcg/dL (250-450)
[2016-12-09 05:58] LABS: ALANINE AMINOTRANSFERASE 146 U/L (12-78); ALBUMIN 4.5 g/dL (3.4-5.0); ANION GAP 18 mmol/L (8-16); ASPARTATE AMINOTRANSFERASE 69 U/L (15-37); BILIRUBIN,TOTAL 0.4 mg/dL (0.1-1.0); CARBON DIOXIDE 21 mmol/L (22-29); CHLORIDE 103 mmol/L (98-107); CREATININE 5.19 mg/dL (0.60-1.30); GLOMERULAR FILTR. RATE CALC 13 mL/min (>60); PHOSPHORUS 7.6 mg/dL (2.5-4.9); POTASSIUM 3.4 mmol/L (3.5-5.1); SODIUM SERUM 142 mmol/L (136-145)
[2016-12-09 06:33] LABS: UREA NITROGEN, BLOOD 113 mg/dL (7-18)
[2016-12-09] MEDS: DOCUSATE SODIUM 100 MG CAPSULE PO SCH ×2 (08:22→21:08)
[2016-12-09] MEDS: AmLODIPine BESYLATE 5 MG TABLET PO SCH ×2 (08:22→21:08)
[2016-12-09] MEDS: FERROUS SULFATE 325 MG EC TABLET PO SCH ×2 (08:22→17:10)
[2016-12-09] MEDS: PredniSONE 20 MG TABLET PO SCH (08:23)
[2016-12-09] MEDS: AZITHROMYCIN 250 MG TABLET PO SCH (08:23)
[2016-12-09] MEDS: LABETALOL HCL 100 MG TABLET PO SCH ×2 (08:23→21:08)
[2016-12-09] MEDS: PANTOPRAZOLE SODIUM 40 MG/VIAL IVP SCH ×2 (08:23→21:09)
[2016-12-09] MEDS: MIDAZOLAM HCL 100 MG in DEXTROSE 5%-WATER 180 ML IV PRN ×2 (10:28→23:59)
[2016-12-09] MEDS: METOCLOPRAMIDE HCL 5 MG/ML 2 ML VIAL IVP SCH ×2 (10:31→21:09)
[2016-12-09] MEDS ORDERED: HEPARIN SODIUM,PORCINE 1,000 UNITS/ML 10 ML VIAL ONE (11:26)
[2016-12-09] MEDS ORDERED: HEPARIN SODIUM 1000 UNITS/NS 500 ML ONE (11:27)
[2016-12-09] MEDS ORDERED: LIDOCAINE HCL/PF 1% 30 ML VIAL ONE (11:27)
[2016-12-09 11:36] LABS: CREATINE KINASE MB 3.2 ng/mL (0-5); CREATINE KINASE, TOTAL 101 U/L (39-308)
[2016-12-09] MEDS ORDERED: HEPARIN SODIUM,PORCINE 1,000 UNITS/ML VIAL IVP ONE (12:00)
[2016-12-09] MEDS ORDERED: ALBUMIN HUMAN 25%-12.5GM/50ML IV BOTTLE IV ONE ×2 (12:00)
[2016-12-09 12:10] LABS: COMPLEMENT C3 83 mg/dL (82-167); COMPLEMENT C4 19 mg/dL (14-44)
[2016-12-09 13:36] LABS: ORGANISM ID Not indicated.
[2016-12-09] MEDS ORDERED: ALBUMIN HUMAN 25%-12.5GM/50ML IV BOTTLE IV PRN (15:45)
[2016-12-09] MEDS ORDERED: MANNITOL 25%-12.5 GM/50 ML VIAL IVP PRN (15:45)
[2016-12-09] MEDS ORDERED: ALBUMIN HUMAN 25%-25GM/100ML 100 ML IV ONE (15:45)
[2016-12-09] MEDS: CefTRIAXone 1 GM/DEXTROSE 50 ML IV SCH (23:08)
[2016-12-10] VITALS (8 sets, daily range): BP systolic 131–146; BP diastolic 73–92
[2016-12-10] MEDS: PROPOFOL 1000 MG/ISO-OSM 100 ML IV PRN ×7 (02:14→21:22)
[2016-12-10] MEDS ORDERED: SODIUM CHLORIDE 0.9% 250 ML IV ONE ×2 (02:52→20:00)
[2016-12-10] MEDS ORDERED: SODIUM CHLORIDE 0.9% 500 ML IV ONE (02:53)
[2016-12-10 05:15] LABS: BASOPHILS # (AUTO) 0.01 K/uL (0.00-0.20); BASOPHILS % (AUTO) 0.2 % (0.0-2.0); EOSINOPHILS # (AUTO) 0.07 K/uL (0.00-0.70); EOSINOPHILS % (AUTO) 1.21 % (1.0-6.0); HEMATOCRIT 23.7 % (41-53); HEMOGLOBIN 8.1 g/dL (13.5-17.5); LYMPHOCYTES # (AUTO) 0.8 K/uL (1.0-4.8); LYMPHOCYTES % (AUTO) 13.4 % (22.0-44.0); MEAN CORPUSCULAR HEMOGLOBIN 28.8 pg (26.0-34.0); MEAN CORPUSCULAR VOLUME 85 fL (80-100); MONOCYTES # (AUTO) 0.4 K/uL (0.1-1.0); MONOCYTES % (AUTO) 6.6 % (2.0-9.0); NEUTROPHILS # (AUTO) 4.8 K/uL (1.8-7.7); NEUTROPHILS % (AUTO) 78.7 % (40.0-70.0); PLATELET COUNT (AUTO) 106 K/uL (150-450); RED CELL DISTRIBUTION WIDTH 13.4 % (11.5-14.5); WHITE BLOOD COUNT (AUTO) 6.1 K/uL (4.5-11.0)
[2016-12-10 05:54] LABS: ALBUMIN 4.4 g/dL (3.4-5.0); BILIRUBIN,TOTAL 0.5 mg/dL (0.1-1.0); CALCIUM, TOTAL 8.3 mg/dL (8.8-10.5); CREATININE 4.14 mg/dL (0.60-1.30); MAGNESIUM 1.8 mg/dL (1.80-2.40); PHOSPHORUS 4.9 mg/dL (2.5-4.9); TOTAL PROTEIN, SERUM 6.2 g/dL (6.4-8.2)
[2016-12-10 05:58] LABS: POTASSIUM 2.9 mmol/L (3.5-5.1)
[2016-12-10] MEDS ORDERED: HEPARIN SODIUM,PORCINE 1,000 UNITS/ML VIAL IVP ONE (07:00)
[2016-12-10] MEDS: POTASSIUM CHL 10 MEQ/WATER 50 ML IV SCH ×2 (08:52→09:08)
[2016-12-10] MEDS: PANTOPRAZOLE SODIUM 40 MG/VIAL IVP SCH ×2 (08:53→21:21)
[2016-12-10] MEDS: DOCUSATE SODIUM 100 MG CAPSULE PO SCH ×2 (08:54→21:21)
[2016-12-10] MEDS: METOCLOPRAMIDE HCL 5 MG/ML 2 ML VIAL IVP SCH ×2 (08:54→21:21)
[2016-12-10] MEDS: FERROUS SULFATE 325 MG EC TABLET PO SCH ×2 (08:54→17:30)
[2016-12-10] MEDS: PredniSONE 20 MG TABLET PO SCH (08:54)
[2016-12-10] MEDS: AmLODIPine BESYLATE 5 MG TABLET PO SCH ×2 (08:55→21:21)
[2016-12-10] MEDS: LABETALOL HCL 100 MG TABLET PO SCH ×2 (08:55→21:21)
[2016-12-10] MEDS: AZITHROMYCIN 250 MG TABLET PO SCH (08:56)
[2016-12-10 09:41] LABS: IGG (IMMUNOFIXATION) 119 mg/dL (700-1600)
[2016-12-10] MEDS ORDERED: ALBUMIN HUMAN 25%-12.5GM/50ML IV BOTTLE IV PRN (10:15)
[2016-12-10] MEDS ORDERED: MANNITOL 25%-12.5 GM/50 ML VIAL IVP PRN (10:15)
[2016-12-10] MEDS ORDERED: LIDOCAINE HCL/PF 1% 2 ML VIAL ID PRN (10:15)
[2016-12-10 16:17] LABS: ASPERGILLUS GALACTOMANNAN-EIA 0.07 Index (0.00-0.49)
[2016-12-10] MEDS: MIDAZOLAM HCL 100 MG in DEXTROSE 5%-WATER 180 ML IV PRN (16:30)
[2016-12-10] MEDS: CefTRIAXone 1 GM/DEXTROSE 50 ML IV SCH (23:50)
[2016-12-11] VITALS (8 sets, daily range): BP systolic 130–165; BP diastolic 92–109
[2016-12-11] MEDS: PROPOFOL 1000 MG/ISO-OSM 100 ML IV PRN ×3 (03:08→09:32)
[2016-12-11] MEDS: MIDAZOLAM HCL 100 MG in DEXTROSE 5%-WATER 180 ML IV PRN (04:07)
[2016-12-11 05:45] LABS: BASOPHILS % (AUTO) 0.3 % (0.0-2.0); EOSINOPHILS % (AUTO) 1.9 % (1.0-6.0); HEMATOCRIT 29.7 % (41-53); HEMOGLOBIN 9.8 g/dL (13.5-17.5); LYMPHOCYTES # (AUTO) 0.7 K/uL (1.0-4.8); MEAN CORPUSCULAR HEMOGLOBIN 28.3 pg (26.0-34.0); MEAN CORPUSCULAR HGB CONC 32.9 G/dL (31.0-37.0); MEAN CORPUSCULAR VOLUME 86 fL (80-100); MONOCYTES # (AUTO) 0.4 K/uL (0.1-1.0); MONOCYTES % (AUTO) 5.6 % (2.0-9.0); NEUTROPHILS # (AUTO) 5.2 K/uL (1.8-7.7); NEUTROPHILS % (AUTO) 81.2 % (40.0-70.0); PLATELET COUNT (AUTO) 135 K/uL (150-450); RED BLOOD CELL COUNT(AUTO) 3.45 MIL/uL (4.50-5.90); RED CELL DISTRIBUTION WIDTH 13.9 % (11.5-14.5); WHITE BLOOD COUNT (AUTO) 6.4 K/uL (4.5-11.0)
[2016-12-11 06:14] LABS: CALCIUM, TOTAL 8.6 mg/dL (8.8-10.5); CREATININE 3.39 mg/dL (0.60-1.30); POTASSIUM 3.1 mmol/L (3.5-5.1)
[2016-12-11] MEDS ORDERED: POTASSIUM CHLORIDE 10% 40 MEQ/30 ML LIQUID UDCUP NG ONE (08:45)
[2016-12-11] MEDS: FERROUS SULFATE 325 MG EC TABLET PO SCH ×2 (08:51→17:30)
[2016-12-11] MEDS: AmLODIPine BESYLATE 5 MG TABLET PO SCH ×2 (08:52→21:14)
[2016-12-11] MEDS: LABETALOL HCL 100 MG TABLET PO SCH ×2 (08:52→21:14)
[2016-12-11] MEDS: PredniSONE 20 MG TABLET PO SCH (08:52)
[2016-12-11] MEDS: DOCUSATE SODIUM 100 MG CAPSULE PO SCH ×2 (08:52→21:00)
[2016-12-11] MEDS: AZITHROMYCIN 250 MG TABLET PO SCH (08:52)
[2016-12-11] MEDS: PANTOPRAZOLE SODIUM 40 MG/VIAL IVP SCH ×2 (08:53→21:14)
[2016-12-11] MEDS: METOCLOPRAMIDE HCL 5 MG/ML 2 ML VIAL IVP SCH ×2 (08:53→21:14)
[2016-12-11] MEDS: POTASSIUM CHL 10 MEQ/WATER 50 ML IV SCH ×2 (09:45→10:24)
[2016-12-11 10:23] LABS: ABG A-A DIFF O2 86.3 mmHg (10-20.0); ABG BASE EXCESS -3.2 mmol/L (-2.0-3.0); ABG HCO3 22.3 mmol/L (22.0-26.0); ABG OXYHEMOGLOBIN 95.5 % (94.0-100.0); ABG PCO2 33 mmHg (35-45); ABG PH 7.424 (7.350-7.450); ALLEN TEST, BLOOD GAS Positive; TEMPERATURE, FAHRENHEIT, BG 98.6 FAHREN (96.0-98.6)
[2016-12-11 12:16] LABS: ALBUMIN/GLOBULIN RAITO (PEP) 2.8 (0.7-1.7); ALPHA-1 GLOBULINS(PEP) 0.2 g/dL (0.0-0.4); ALPHA-2 GLOBULINS (PEP) 0.6 g/dL (0.4-1.0); BETA (PEP) 0.5 g/dL (0.7-1.3); GAMMA GLOBULINS (PEP) 0.2 g/dL (0.4-1.8); GLOBULIN TOTAL (PEP) 1.5 g/dL (2.2-3.9); M-SPIKE (PEP) Not Observed g/dL (Not Observed); TOTAL PROTEIN 5.7 g/dL (6.0-8.5)
[2016-12-11 15:33] LABS: ABG A-A DIFF O2 45.9 mmHg (10-20.0); ABG BASE EXCESS -5.5 mmol/L (-2.0-3.0); ABG HCO3 20.8 mmol/L (22.0-26.0); ABG OXYHEMOGLOBIN 97.3 % (94.0-100.0); ABG PCO2 29 mmHg (35-45); ABG PH 7.426 (7.350-7.450); ALLEN TEST, BLOOD GAS Positive; TEMPERATURE, FAHRENHEIT, BG 98.6 FAHREN (96.0-98.6)
[2016-12-11 17:57] LABS: ABG A-A DIFF O2 84.5 mmHg (10-20.0); ABG BASE EXCESS -5.2 mmol/L (-2.0-3.0); ABG HCO3 20.9 mmol/L (22.0-26.0); ABG OXYHEMOGLOBIN 96.9 % (94.0-100.0); ABG PCO2 31 mmHg (35-45); ABG PH 7.419 (7.350-7.450); ALLEN TEST, BLOOD GAS Positive; TEMPERATURE, FAHRENHEIT, BG 98.6 FAHREN (96.0-98.6)
[2016-12-11 19:06] LABS: CREATININE 3.72 mg/dL (0.60-1.30)
[2016-12-11] MEDS: CefTRIAXone 1 GM/DEXTROSE 50 ML IV SCH (23:01)
[2016-12-12] VITALS (7 sets, daily range): BP systolic 135–168; BP diastolic 79–111
[2016-12-12] MEDS ORDERED: SODIUM CHLORIDE 0.9% 250 ML IV ONE (05:26)
[2016-12-12 05:54] LABS: EOSINOPHILS % (AUTO) 0.6 % (1.0-6.0); HEMOGLOBIN 10.3 g/dL (13.5-17.5); LYMPHOCYTES # (AUTO) 0.7 K/uL (1.0-4.8); LYMPHOCYTES % (AUTO) 6.7 % (22.0-44.0); MEAN CORPUSCULAR HEMOGLOBIN 28.4 pg (26.0-34.0); MEAN CORPUSCULAR HGB CONC 33.2 G/dL (31.0-37.0); MEAN CORPUSCULAR VOLUME 86 fL (80-100); MONOCYTES # (AUTO) 0.5 K/uL (0.1-1.0); MONOCYTES % (AUTO) 5.1 % (2.0-9.0); NEUTROPHILS # (AUTO) 9.2 K/uL (1.8-7.7); PLATELET COUNT (AUTO) 169 K/uL (150-450); RED BLOOD CELL COUNT(AUTO) 3.62 MIL/uL (4.50-5.90); RED CELL DISTRIBUTION WIDTH 14.2 % (11.5-14.5); WHITE BLOOD COUNT (AUTO) 10.5 K/uL (4.5-11.0)
[2016-12-12 05:58] LABS: NEUTROPHILS % (AUTO) 87.6 % (40.0-70.0)
[2016-12-12 05:59] LABS: CALCIUM, TOTAL 8.8 mg/dL (8.8-10.5); CREATININE 3.96 mg/dL (0.60-1.30); PHOSPHORUS 5.5 mg/dL (2.5-4.9); POTASSIUM 3.6 mmol/L (3.5-5.1)
[2016-12-12 07:51] LABS: RBC MORPHOLOGY COMMENT NORMAL RBC MORPH
[2016-12-12] MEDS: PANTOPRAZOLE SODIUM 40 MG/VIAL IVP SCH ×2 (08:29→20:00)
[2016-12-12] MEDS: AZITHROMYCIN 250 MG TABLET PO SCH (08:30)
[2016-12-12] MEDS: METOCLOPRAMIDE HCL 5 MG/ML 2 ML VIAL IVP SCH ×2 (08:30→19:59)
[2016-12-12] MEDS: FERROUS SULFATE 325 MG EC TABLET PO SCH ×2 (08:31→17:30)
[2016-12-12] MEDS: PredniSONE 20 MG TABLET PO SCH (08:31)
[2016-12-12] MEDS: AmLODIPine BESYLATE 5 MG TABLET PO SCH ×2 (08:31→23:18)
[2016-12-12] MEDS: LABETALOL HCL 100 MG TABLET PO SCH (08:31)
[2016-12-12] MEDS: DOCUSATE SODIUM 100 MG CAPSULE PO SCH ×2 (08:32→21:47)
[2016-12-12] MEDS ORDERED: LABETALOL HCL 100 MG TABLET PO ONE (11:00)
[2016-12-12] MEDS ORDERED: SODIUM CHLORIDE 0.9% 2,000 ML IV ONE (13:33)
[2016-12-12 13:42] LABS: GLUCOSE,POINT OF CARE 153 MG/DL (70-110)
[2016-12-12] MEDS: HydrALAZINE HCL 20 MG/ML VIAL IVP PRN (19:22)
[2016-12-12] MEDS: MORPHINE SULFATE 2 MG/ML SYRINGE IVP PRN (19:58)
[2016-12-12] MEDS: MYCOPHENOLATE MOFETIL 250 MG CAPSULE PO SCH (21:43)
[2016-12-12] MEDS: LABETALOL HCL 200 MG TABLET PO SCH (21:43)
[2016-12-12] MEDS ORDERED: HEPARIN SODIUM,PORCINE 1,000 UNITS/ML VIAL IVP ONE (23:04)
[2016-12-12] MEDS: CefTRIAXone 1 GM/DEXTROSE 50 ML IV SCH (23:17)
[2016-12-13] VITALS (10 sets, daily range): BP systolic 111–154; BP diastolic 61–103
[2016-12-13] MEDS: MORPHINE SULFATE 2 MG/ML SYRINGE IVP PRN (01:07)
[2016-12-13 05:49] LABS: CALCIUM, TOTAL 8.8 mg/dL (8.8-10.5); CREATININE 3.29 mg/dL (0.60-1.30); MAGNESIUM 1.7 mg/dL (1.80-2.40); PHOSPHORUS 4.6 mg/dL (2.5-4.9); POTASSIUM 3.3 mmol/L (3.5-5.1)
[2016-12-13 07:14] LABS: BASOPHILS # (AUTO) 0.02 K/uL (0.00-0.20); BASOPHILS % (AUTO) 0.4 % (0.0-2.0); EOSINOPHILS # (AUTO) 0.09 K/uL (0.00-0.70); EOSINOPHILS % (AUTO) 1.34 % (1.0-6.0); HEMATOCRIT 27.4 % (41-53); HEMOGLOBIN 9.3 g/dL (13.5-17.5); LYMPHOCYTES # (AUTO) 0.8 K/uL (1.0-4.8); LYMPHOCYTES % (AUTO) 11.2 % (22.0-44.0); MEAN CORPUSCULAR HEMOGLOBIN 28.6 pg (26.0-34.0); MEAN CORPUSCULAR HGB CONC 33.8 G/dL (31.0-37.0); MEAN CORPUSCULAR VOLUME 85 fL (80-100); MONOCYTES # (AUTO) 0.6 K/uL (0.1-1.0); MONOCYTES % (AUTO) 8.2 % (2.0-9.0); NEUTROPHILS # (AUTO) 5.4 K/uL (1.8-7.7); PLATELET COUNT (AUTO) 175 K/uL (150-450); RED BLOOD CELL COUNT(AUTO) 3.25 MIL/uL (4.50-5.90); RED CELL DISTRIBUTION WIDTH 13.4 % (11.5-14.5); WHITE BLOOD COUNT (AUTO) 6.8 K/uL (4.5-11.0)
[2016-12-13] MEDS: MYCOPHENOLATE MOFETIL 250 MG CAPSULE PO SCH ×2 (08:26→20:07)
[2016-12-13] MEDS: LABETALOL HCL 200 MG TABLET PO SCH ×2 (08:26→20:07)
[2016-12-13] MEDS: METOCLOPRAMIDE HCL 5 MG/ML 2 ML VIAL IVP SCH ×2 (08:26→20:07)
[2016-12-13] MEDS: AmLODIPine BESYLATE 5 MG TABLET PO SCH ×2 (08:26→20:07)
[2016-12-13] MEDS: PANTOPRAZOLE SODIUM 40 MG/VIAL IVP SCH ×2 (08:26→20:07)
[2016-12-13] MEDS: FERROUS SULFATE 325 MG EC TABLET PO SCH ×2 (08:26→17:57)
[2016-12-13] MEDS: AZITHROMYCIN 250 MG TABLET PO SCH (08:27)
[2016-12-13] MEDS: PredniSONE 20 MG TABLET PO SCH (08:27)
[2016-12-13] MEDS: DOCUSATE SODIUM 100 MG CAPSULE PO SCH ×2 (08:27→20:07)
[2016-12-13] MEDS ORDERED: POTASSIUM CHLORIDE 10% 40 MEQ/30 ML LIQUID UDCUP PO ONE (09:30)
[2016-12-13] MEDS ORDERED: MAGNESIUM OXIDE 400 MG TABLET PO ONE (09:30)
[2016-12-13] MEDS: HYDROCODONE/ACETAMINOPHEN 5-325 MG TABLET PO PRN (11:35)
[2016-12-14 04:21] VITALS: BP 148/86
[2016-12-14 06:53] LABS: BASOPHILS % (AUTO) 0.5 % (0.0-2.0); EOSINOPHILS % (AUTO) 1.3 % (1.0-6.0); HEMATOCRIT 26.2 % (41-53); HEMOGLOBIN 8.7 g/dL (13.5-17.5); LYMPHOCYTES # (AUTO) 1.2 K/uL (1.0-4.8); LYMPHOCYTES % (AUTO) 19.8 % (22.0-44.0); MEAN CORPUSCULAR HEMOGLOBIN 28.5 pg (26.0-34.0); MEAN CORPUSCULAR HGB CONC 33.3 G/dL (31.0-37.0); MEAN CORPUSCULAR VOLUME 85 fL (80-100); MONOCYTES # (AUTO) 0.7 K/uL (0.1-1.0); MONOCYTES % (AUTO) 10.8 % (2.0-9.0); NEUTROPHILS # (AUTO) 4.1 K/uL (1.8-7.7); NEUTROPHILS % (AUTO) 67.6 % (40.0-70.0); PLATELET COUNT (AUTO) 221 K/uL (150-450); RED BLOOD CELL COUNT(AUTO) 3.07 MIL/uL (4.50-5.90); RED CELL DISTRIBUTION WIDTH 14.1 % (11.5-14.5); WHITE BLOOD COUNT (AUTO) 6.1 K/uL (4.5-11.0)
[2016-12-14 07:01] LABS: CALCIUM, TOTAL 8.7 mg/dL (8.8-10.5); CREATININE 4.19 mg/dL (0.60-1.30); MAGNESIUM 1.9 mg/dL (1.80-2.40); PHOSPHORUS 5.1 mg/dL (2.5-4.9); POTASSIUM 3.5 mmol/L (3.5-5.1)
[2016-12-14 07:35] VITALS: BP 137/90
[2016-12-14] MEDS: PANTOPRAZOLE SODIUM 40 MG/VIAL IVP SCH ×2 (08:29→21:20)
[2016-12-14] MEDS: AZITHROMYCIN 250 MG TABLET PO SCH (08:29)
[2016-12-14] MEDS: DOCUSATE SODIUM 100 MG CAPSULE PO SCH ×2 (08:29→21:18)
[2016-12-14] MEDS: LABETALOL HCL 200 MG TABLET PO SCH (08:29)
[2016-12-14] MEDS: PredniSONE 20 MG TABLET PO SCH (08:30)
[2016-12-14] MEDS: METOCLOPRAMIDE HCL 5 MG/ML 2 ML VIAL IVP SCH ×2 (08:30→21:20)
[2016-12-14] MEDS: FERROUS SULFATE 325 MG EC TABLET PO SCH ×2 (08:30→17:59)
[2016-12-14] MEDS: MYCOPHENOLATE MOFETIL 250 MG CAPSULE PO SCH ×2 (08:30→23:59)
[2016-12-14] MEDS: AmLODIPine BESYLATE 5 MG TABLET PO SCH ×2 (08:31→21:18)
[2016-12-14 16:15] VITALS: BP 128/89
[2016-12-14 20:27] VITALS: BP 128/84
[2016-12-14 23:08] VITALS: BP 148/89
[2016-12-15 04:13] VITALS: BP 129/84
[2016-12-15 06:07] LABS: BASOPHILS # (AUTO) 0.01 K/uL (0.00-0.20); BASOPHILS % (AUTO) 0.1 % (0.0-2.0); EOSINOPHILS # (AUTO) 0.05 K/uL (0.00-0.70); EOSINOPHILS % (AUTO) 0.79 % (1.0-6.0); HEMATOCRIT 24.6 % (41-53); HEMOGLOBIN 8.3 g/dL (13.5-17.5); LYMPHOCYTES # (AUTO) 1.3 K/uL (1.0-4.8); LYMPHOCYTES % (AUTO) 20.4 % (22.0-44.0); MEAN CORPUSCULAR HEMOGLOBIN 28.6 pg (26.0-34.0); MEAN CORPUSCULAR HGB CONC 33.8 G/dL (31.0-37.0); MEAN CORPUSCULAR VOLUME 85 fL (80-100); MONOCYTES # (AUTO) 0.7 K/uL (0.1-1.0); MONOCYTES % (AUTO) 10.9 % (2.0-9.0); NEUTROPHILS # (AUTO) 4.3 K/uL (1.8-7.7); NEUTROPHILS % (AUTO) 67.8 % (40.0-70.0); PLATELET COUNT (AUTO) 269 K/uL (150-450); RED BLOOD CELL COUNT(AUTO) 2.91 MIL/uL (4.50-5.90); WHITE BLOOD COUNT (AUTO) 6.4 K/uL (4.5-11.0)
[2016-12-15 06:57] LABS: CALCIUM, TOTAL 8.7 mg/dL (8.8-10.5); CREATININE 4.45 mg/dL (0.60-1.30); MAGNESIUM 2.1 mg/dL (1.80-2.40); POTASSIUM 3.5 mmol/L (3.5-5.1)
[2016-12-15] MEDS: MYCOPHENOLATE MOFETIL 250 MG CAPSULE PO SCH ×2 (07:46→21:20)
[2016-12-15] MEDS: AmLODIPine BESYLATE 5 MG TABLET PO SCH ×2 (07:46→21:20)
[2016-12-15] MEDS: DOCUSATE SODIUM 100 MG CAPSULE PO SCH ×2 (07:46→21:20)
[2016-12-15] MEDS: AZITHROMYCIN 250 MG TABLET PO SCH (07:46)
[2016-12-15] MEDS: FERROUS SULFATE 325 MG EC TABLET PO SCH ×2 (07:46→17:59)
[2016-12-15] MEDS: LABETALOL HCL 200 MG TABLET PO SCH ×3 (07:46→21:20)
[2016-12-15] MEDS: PANTOPRAZOLE SODIUM 40 MG/VIAL IVP SCH ×2 (07:47→21:19)
[2016-12-15] MEDS: METOCLOPRAMIDE HCL 5 MG/ML 2 ML VIAL IVP SCH ×2 (07:47→21:19)
[2016-12-15] MEDS: PredniSONE 20 MG TABLET PO SCH (07:49)
[2016-12-15 08:00] VITALS: BP 139/96
[2016-12-15] MEDS ORDERED: LIDOCAINE HCL/PF 1% 30 ML VIAL ONE (10:08)
[2016-12-15] MEDS ORDERED: HEPARIN SODIUM 1000 UNITS/NS 500 ML ONE (10:09)
[2016-12-15] MEDS ORDERED: HEPARIN SODIUM,PORCINE 1,000 UNITS/ML 10 ML VIAL ONE (10:10)
[2016-12-15] MEDS ORDERED: FentaNYL CITRATE-PF 100 MCG/2 ML VIAL ONE (10:21)
[2016-12-15] MEDS ORDERED: MIDAZOLAM HCL 2 MG/2 ML VIAL ONE (10:21)
[2016-12-15] MEDS ORDERED: LIDOCAINE HCL 1%/EPI 1:200,000/PF 10 ML VIAL ONE (10:22)
[2016-12-15 10:32] LABS: COCCIDIOIDES BY CF(UCDAVIS) Negative; COCCIDIOIDES INTERP.(UCDAVIS) Comment:
[2016-12-15] MEDS ORDERED: MIDAZOLAM HCL 2 MG/2 ML VIAL IVP ONE (10:52)
[2016-12-15] MEDS ORDERED: FentaNYL CITRATE-PF 100 MCG/2 ML VIAL IVP ONE (10:52)
[2016-12-15 12:01] VITALS: BP 147/83
[2016-12-15 12:19] LABS: COCCIDIOIDES IMMUNODIF-UCDAVIS Negative
[2016-12-15] MEDS ORDERED: SODIUM CHLORIDE 0.9% 2,000 ML IV ONE (12:50)
[2016-12-15 21:07] VITALS: BP 140/97
[2016-12-15 23:00] VITALS: BP 137/94
[2016-12-16 04:16] VITALS: BP 121/84
[2016-12-16 07:48] VITALS: BP 139/88
[2016-12-16] MEDS: PANTOPRAZOLE SODIUM 40 MG/VIAL IVP SCH ×2 (08:35→20:21)
[2016-12-16] MEDS: METOCLOPRAMIDE HCL 5 MG/ML 2 ML VIAL IVP SCH ×2 (08:35→20:21)
[2016-12-16] MEDS: MYCOPHENOLATE MOFETIL 250 MG CAPSULE PO SCH ×2 (08:36→20:24)
[2016-12-16] MEDS: PredniSONE 20 MG TABLET PO SCH (08:36)
[2016-12-16] MEDS: FERROUS SULFATE 325 MG EC TABLET PO SCH ×2 (08:37→17:48)
[2016-12-16] MEDS: AZITHROMYCIN 250 MG TABLET PO SCH (08:37)
[2016-12-16] MEDS: LABETALOL HCL 200 MG TABLET PO SCH ×2 (08:37→20:24)
[2016-12-16] MEDS: AmLODIPine BESYLATE 5 MG TABLET PO SCH ×2 (08:37→20:24)
[2016-12-16] MEDS: DOCUSATE SODIUM 100 MG CAPSULE PO SCH ×2 (08:37→20:24)
[2016-12-16 11:44] VITALS: BP 125/74
[2016-12-16 14:27] LABS: GLUCOSE,POINT OF CARE 137 MG/DL (70-110)
[2016-12-16 15:51] VITALS: BP 135/81
[2016-12-16 18:01] LABS: CREATININE 3.79 mg/dL (0.60-1.30)
[2016-12-16 20:00] VITALS: BP 145/88
[2016-12-17] VITALS (7 sets, daily range): BP systolic 117–148; BP diastolic 82–98
[2016-12-17 06:10] LABS: CALCIUM, TOTAL 8.6 mg/dL (8.8-10.5); CREATININE 3.74 mg/dL (0.60-1.30); MAGNESIUM 1.8 mg/dL (1.80-2.40); PHOSPHORUS 5.3 mg/dL (2.5-4.9); POTASSIUM 3.7 mmol/L (3.5-5.1)
[2016-12-17] MEDS: LABETALOL HCL 200 MG TABLET PO SCH ×2 (08:17→20:33)
[2016-12-17] MEDS: AmLODIPine BESYLATE 5 MG TABLET PO SCH ×2 (08:18→20:33)
[2016-12-17] MEDS: PANTOPRAZOLE SODIUM 40 MG/VIAL IVP SCH ×2 (08:18→20:42)
[2016-12-17] MEDS: PredniSONE 20 MG TABLET PO SCH (08:18)
[2016-12-17] MEDS: FERROUS SULFATE 325 MG EC TABLET PO SCH ×2 (08:18→18:50)
[2016-12-17] MEDS: METOCLOPRAMIDE HCL 5 MG/ML 2 ML VIAL IVP SCH ×2 (08:18→20:34)
[2016-12-17] MEDS: MYCOPHENOLATE MOFETIL 250 MG CAPSULE PO SCH ×2 (08:18→20:33)
[2016-12-17] MEDS: DOCUSATE SODIUM 100 MG CAPSULE PO SCH ×2 (08:18→20:33)
[2016-12-17 17:27] LABS: CREATININE 3.74 mg/dL (0.60-1.30)
[2016-12-18 04:57] VITALS: BP 140/89
[2016-12-18 07:18] LABS: CALCIUM, TOTAL 8.8 mg/dL (8.8-10.5); CREATININE 3.56 mg/dL (0.60-1.30); MAGNESIUM 1.8 mg/dL (1.80-2.40); PHOSPHORUS 5.3 mg/dL (2.5-4.9); POTASSIUM 3.8 mmol/L (3.5-5.1)
[2016-12-18 07:36] LABS: GLUCOSE, URINE (UA) NEGATIVE (NEGATIVE); KETONES,URINE NEGATIVE (NEGATIVE); LEUKOCYTE ESTERASE ,URINE NEGATIVE (NEGATIVE); OCCULT BLOOD,URINE MODERATE (NEGATIVE); PROTEIN,URINE SEE CONFIRM (NEGATIVE)
[2016-12-18 07:38] LABS: ADD UA MICROSCOPIC YES; APPEARANCE,URINE HAZY (CLEAR)
[2016-12-18 07:46] LABS: SULFOSALICYLIC ACID,URINE 3+ (Negative)
[2016-12-18 07:47] LABS: SQUAMOUS EPITHELIAL CELL,UR Few /LPF (None Seen)
[2016-12-18 07:48] VITALS: BP 130/90
[2016-12-18 07:48] LABS: FINE GRANULAR CASTS,URINE 0-2 /LPF (None Seen)
[2016-12-18] MEDS: METOCLOPRAMIDE HCL 5 MG/ML 2 ML VIAL IVP SCH (08:23)
[2016-12-18] MEDS: AmLODIPine BESYLATE 5 MG TABLET PO SCH (08:24)
[2016-12-18] MEDS: FERROUS SULFATE 325 MG EC TABLET PO SCH (08:24)
[2016-12-18] MEDS: PredniSONE 20 MG TABLET PO SCH (08:24)
[2016-12-18] MEDS: DOCUSATE SODIUM 100 MG CAPSULE PO SCH (08:24)
[2016-12-18] MEDS: PANTOPRAZOLE SODIUM 40 MG/VIAL IVP SCH (08:24)
[2016-12-18] MEDS: MYCOPHENOLATE MOFETIL 250 MG CAPSULE PO SCH (08:24)
[2016-12-18] MEDS: LABETALOL HCL 200 MG TABLET PO SCH (08:24)
[2016-12-18 09:29] LABS: CYTOMEGALOVIRUS QNT LOG10 3.291
[2016-12-18 11:43] VITALS: BP 138/95
== END 2016-12-18 17:30 | disposition home or self-care (01) | DRG 951 ==
LOC: EMS 20:13 → 6N 23:09 → ICU 12-07 21:45 → 6N 12-13 12:40
PROVIDERS: ADMIT Internal Medicine; ATTEND Internal Medicine
PROC: 0TB03ZX Excision of Right Kidney, Percutaneous Approach, Diagnostic (ICD-10-PCS; principal; 2016-12-05)
PROC: 0DH67UZ Insertion of Feeding Device into Stomach, Via Natural or Artificial Opening (ICD-10-PCS; 2016-12-06)
PROC: 30233N1 Transfusion of Nonautologous Red Blood Cells into Peripheral Vein, Percutaneous Approach (ICD-10-PCS; 2016-12-07)
PROC: 0BH17EZ Insertion of Endotracheal Airway into Trachea, Via Natural or Artificial Opening (ICD-10-PCS; 2016-12-08)
PROC: 02HV33Z Insertion of Infusion Device into Superior Vena Cava, Percutaneous Approach (ICD-10-PCS; 2016-12-08)
PROC: 5A1945Z Respiratory Ventilation, 24-96 Consecutive Hours (ICD-10-PCS; 2016-12-08)
PROC: 3E1F88Z Irrigation of Respiratory Tract using Irrigating Substance, Via Natural or Artificial Opening Endoscopic (ICD-10-PCS; 2016-12-08)
PROC: 5A1D60Z (ICD-10-PCS; 2016-12-09)
PROC: 02HV33Z Insertion of Infusion Device into Superior Vena Cava, Percutaneous Approach (ICD-10-PCS; 2016-12-15)
PROC: B5181ZA Fluoroscopy of Superior Vena Cava using Low Osmolar Contrast, Guidance (ICD-10-PCS; 2016-12-15)
PROC: 3E043GC Introduction of Other Therapeutic Substance into Central Vein, Percutaneous Approach (ICD-10-PCS; 2016-12-15)
DX: N01.8 Rapidly progressive nephritic syndrome with other morphologic changes (principal); J96.01 Acute respiratory failure with hypoxia; Z99.11 Dependence on respirator [ventilator] status; J18.0 Bronchopneumonia, unspecified organism; N18.6 End stage renal disease; N17.9 Acute kidney failure, unspecified; I12.0 Hypertensive chronic kidney disease with stage 5 chronic kidney disease or end stage renal disease; D69.6 Thrombocytopenia, unspecified; F17.210 Nicotine dependence, cigarettes, uncomplicated; E87.5 Hyperkalemia; D63.8 Anemia in other chronic diseases classified elsewhere; E87.6 Hypokalemia; E86.0 Dehydration; D64.9 Anemia, unspecified; Z79.899 Other long term (current) drug therapy
CPT/HCPCS: 31624; 36245; 36556; 36561; 50200; 71250; 74176; 76937; 82271; 82565; 82570; 82595; 82607; 82728; 82746; 82784; 82805; 82962; 83010; 83516; 83540; 83550; 83615; 83735; 84100; 84132; 84145; 84155; 84156; 84165; 84300; 84520; 84540; 85007; 85014; 85018; 85362; 85384; 86160; 86171; 86331; 86334; 86403; 86480; 86631; 86632; 86644; 86645; 86738; 86803; 86850; 86900; 86901; 86920; 87015; 87070; 87081; 87101; 87147; 87149; 87153; 87205; 87220; 87252; 87305; 87340; 87389; 87449; 87497; 87804; 87899; 88108; 88300; 88305; 88312; 88313; 90935; 92610; 93005; 93970; 94002; 94003; 96365; 97162; 99285; C9113; J0171; J0330; J0360; J0696; J1200; J1644; J1940; J2060; J2250; J2270; J2597; J2704; J2765; J3010; J3480; J3490; J7030; J7040; J7050; J7060; J7517; P9016; P9046; P9047

== ENCOUNTER → 2016-12-22 | Outpatient (CLI) | payer OTHER ==
[~2016-12-22] MED LIST changes: -CIPR-278 PO; +ESOM20CA31 PO
[2016-12-22 11:13] LABS: CALCIUM, TOTAL 8.8 mg/dL (8.8-10.5); CREATININE 2.87 mg/dL (0.60-1.30); POTASSIUM 5.6 mmol/L (3.5-5.1)
== END | disposition home or self-care (01) ==
LOC: LABPV 08:38
PROVIDERS: ATTEND Internal Medicine Nephrology
DX: N18.4 Chronic kidney disease, stage 4 (severe) (principal)

== ENCOUNTER 2016-12-25 11:24 | Emergency (ER) | payer MEDICAID, OTHER ==
[~2016-12-25] VITALS: Ht 170.2 cm; Wt 85.0 kg
[2016-12-25] MEDS ORDERED: LIDOCAINE HCL 1%/EPI 1:200,000/PF 10 ML VIAL ONE (12:49)
[2016-12-25 13:00] VITALS: BP 142/91
== END 2016-12-25 14:40 | disposition home or self-care (01) ==
LOC: EMS 11:25
DX: T82.49XA Other complication of vascular dialysis catheter, initial encounter (principal); I12.0 Hypertensive chronic kidney disease with stage 5 chronic kidney disease or end stage renal disease; N18.6 End stage renal disease; F17.210 Nicotine dependence, cigarettes, uncomplicated; Z99.2 Dependence on renal dialysis
CPT/HCPCS: 36590; 99282; J3490; 99283

== ENCOUNTER → 2016-12-25 | Outpatient (CLI) | payer SELFPAY ==
[2016-12-26 22:53] LABS: OVA AND PARASITES EXAM Final report
== END | disposition home or self-care (01) ==
LOC: LABMN 16:56
PROVIDERS: ATTEND Internal Medicine Nephrology
DX: I10 Essential (primary) hypertension (principal); R31.9 Hematuria, unspecified; N01.9 Rapidly progressive nephritic syndrome with unspecified morphologic changes
CPT/HCPCS: 87045; 87177; 87324; 87449

== ENCOUNTER → 2017-01-15 | Outpatient (CLI) | payer OTHER ==
[2017-01-15 10:29] LABS: BASOPHILS % (AUTO) 0.1 % (0.0-2.0); EOSINOPHILS % (AUTO) 2.8 % (1.0-6.0); HEMATOCRIT 28.3 % (41-53); HEMOGLOBIN 9.1 g/dL (13.5-17.5); LYMPHOCYTES # (AUTO) 2.5 K/uL (1.0-4.8); LYMPHOCYTES % (AUTO) 25.4 % (22.0-44.0); MEAN CORPUSCULAR HEMOGLOBIN 27.8 pg (26.0-34.0); MEAN CORPUSCULAR HGB CONC 32.1 G/dL (31.0-37.0); MEAN CORPUSCULAR VOLUME 86 fL (80-100); MONOCYTES # (AUTO) 0.9 K/uL (0.1-1.0); MONOCYTES % (AUTO) 9.1 % (2.0-9.0); NEUTROPHILS # (AUTO) 6.2 K/uL (1.8-7.7); NEUTROPHILS % (AUTO) 62.6 % (40.0-70.0); PLATELET COUNT (AUTO) 219 K/uL (150-450); RED BLOOD CELL COUNT(AUTO) 3.27 MIL/uL (4.50-5.90); RED CELL DISTRIBUTION WIDTH 16.1 % (11.5-14.5)
[2017-01-15 10:37] LABS: APPEARANCE,URINE CLOUDY (CLEAR); GLUCOSE, URINE (UA) NEGATIVE (NEGATIVE); KETONES,URINE NEGATIVE (NEGATIVE); LEUKOCYTE ESTERASE ,URINE NEGATIVE (NEGATIVE); OCCULT BLOOD,URINE MODERATE (NEGATIVE); PH,URINE 5.5 (5.0-8.0); PROTEIN,URINE SEE CONFIRM (NEGATIVE)
[2017-01-15 10:38] LABS: ALBUMIN 3.2 g/dL (3.4-5.0); BILIRUBIN,TOTAL 0.2 mg/dL (0.1-1.0); CALCIUM, TOTAL 8.4 mg/dL (8.8-10.5); CREATININE 2.32 mg/dL (0.60-1.30); POTASSIUM 3.9 mmol/L (3.5-5.1); TOTAL PROTEIN, SERUM 5.7 g/dL (6.4-8.2)
[2017-01-15 10:39] LABS: ADD UA MICROSCOPIC YES
[2017-01-15 11:06] LABS: RBC,URINE 0-2 /HPF (0-2); SULFOSALICYLIC ACID,URINE 3+ (Negative); WBC,URINE 0-2 /HPF (0-5)
[2017-01-15 11:07] LABS: COARSE GRANULAR CASTS,URINE 0-2 /LPF (None Seen); FINE GRANULAR CASTS,URINE 0-2 /LPF (None Seen); SQUAMOUS EPITHELIAL CELL,UR Few /LPF (None Seen)
== END | disposition home or self-care (01) ==
LOC: LABPV 09:45
PROVIDERS: ATTEND Internal Medicine Nephrology
DX: I10 Essential (primary) hypertension (principal); N01.9 Rapidly progressive nephritic syndrome with unspecified morphologic changes; R80.9 Proteinuria, unspecified
CPT/HCPCS: 82570; 84156

== ENCOUNTER → 2017-03-09 | Outpatient (CLI) | payer OTHER ==
[2017-03-09 10:06] LABS: BASOPHILS % (AUTO) 0.4 % (0.0-2.0); EOSINOPHILS % (AUTO) 1.3 % (1.0-6.0); HEMATOCRIT 22.8 % (41-53); HEMOGLOBIN 7.7 g/dL (13.5-17.5); LYMPHOCYTES # (AUTO) 2.7 K/uL (1.0-4.8); LYMPHOCYTES % (AUTO) 24.2 % (22.0-44.0); MEAN CORPUSCULAR HEMOGLOBIN 30.1 pg (26.0-34.0); MEAN CORPUSCULAR HGB CONC 33.8 G/dL (31.0-37.0); MEAN CORPUSCULAR VOLUME 89 fL (80-100); MONOCYTES % (AUTO) 9.2 % (2.0-9.0); NEUTROPHILS # (AUTO) 7.2 K/uL (1.8-7.7); NEUTROPHILS % (AUTO) 64.9 % (40.0-70.0); PLATELET COUNT (AUTO) 436 K/uL (150-450); RED BLOOD CELL COUNT(AUTO) 2.56 MIL/uL (4.50-5.90); RED CELL DISTRIBUTION WIDTH 18.2 % (11.5-14.5); WHITE BLOOD COUNT (AUTO) 11.1 K/uL (4.5-11.0)
[2017-03-09 10:16] LABS: APPEARANCE,URINE CLEAR (CLEAR); GLUCOSE, URINE (UA) NEGATIVE (NEGATIVE); KETONES,URINE NEGATIVE (NEGATIVE); LEUKOCYTE ESTERASE ,URINE NEGATIVE (NEGATIVE); OCCULT BLOOD,URINE SMALL (NEGATIVE); PH,URINE 5.5 (5.0-8.0); PROTEIN,URINE SEE CONFIRM (NEGATIVE)
[2017-03-09 10:19] LABS: ADD UA MICROSCOPIC YES
[2017-03-09 10:25] LABS: ALBUMIN 3.2 g/dL (3.4-5.0); BILIRUBIN,TOTAL 0.2 mg/dL (0.1-1.0); CALCIUM, TOTAL 9.2 mg/dL (8.8-10.5); CREATININE 2.34 mg/dL (0.60-1.30); PHOSPHORUS 5.4 mg/dL (2.5-4.9); TOTAL PROTEIN, SERUM 5.7 g/dL (6.4-8.2)
[2017-03-09 10:28] LABS: SULFOSALICYLIC ACID,URINE 3+ (Negative)
[2017-03-09 10:29] LABS: RBC,URINE 0-2 /HPF (0-2); SQUAMOUS EPITHELIAL CELL,UR Few /LPF (None Seen); WBC,URINE 0-2 /HPF (0-5)
[2017-03-09 10:39] LABS: RBC MORPHOLOGY COMMENT ABNORMAL RBC MORPH
== END | disposition home or self-care (01) ==
LOC: LABPV 08:52
PROVIDERS: ATTEND Internal Medicine Nephrology
DX: I10 Essential (primary) hypertension (principal); R80.9 Proteinuria, unspecified; R31.9 Hematuria, unspecified
CPT/HCPCS: 82570; 83970; 84100; 84156

== ENCOUNTER → 2017-04-07 | Outpatient (CLI) | payer OTHER ==
[2017-04-07 11:46] LABS: BASOPHILS % (AUTO) 0.3 % (0.0-2.0); EOSINOPHILS % (AUTO) 2.5 % (1.0-6.0); HEMATOCRIT 25.8 % (41-53); HEMOGLOBIN 8.6 g/dL (13.5-17.5); LYMPHOCYTES # (AUTO) 2.1 K/uL (1.0-4.8); LYMPHOCYTES % (AUTO) 17.4 % (22.0-44.0); MEAN CORPUSCULAR HGB CONC 33.3 G/dL (31.0-37.0); MEAN CORPUSCULAR VOLUME 93 fL (80-100); MONOCYTES # (AUTO) 0.8 K/uL (0.1-1.0); NEUTROPHILS # (AUTO) 8.6 K/uL (1.8-7.7); NEUTROPHILS % (AUTO) 72.8 % (40.0-70.0); PLATELET COUNT (AUTO) 381 K/uL (150-450); RED BLOOD CELL COUNT(AUTO) 2.77 MIL/uL (4.50-5.90); RED CELL DISTRIBUTION WIDTH 15.6 % (11.5-14.5); WHITE BLOOD COUNT (AUTO) 11.8 K/uL (4.5-11.0)
[2017-04-07 11:57] LABS: CALCIUM, TOTAL 9.5 mg/dL (8.8-10.5); CREATININE 2.39 mg/dL (0.60-1.30); PHOSPHORUS 4.5 mg/dL (2.5-4.9); POTASSIUM 4.7 mmol/L (3.5-5.1)
== END | disposition home or self-care (01) ==
LOC: LABPV 09:23
PROVIDERS: ATTEND Internal Medicine Nephrology
DX: N01.9 Rapidly progressive nephritic syndrome with unspecified morphologic changes (principal); R80.9 Proteinuria, unspecified
CPT/HCPCS: 82570; 82607; 82728; 82746; 83540; 83550; 84100; 84156; 84466

== ENCOUNTER → 2017-06-02 | Outpatient (CLI) | payer OTHER ==
[2017-06-02 12:09] LABS: HEMATOCRIT 30.1 % (41-53)
[2017-06-02 12:22] LABS: CALCIUM, TOTAL 8.9 mg/dL (8.8-10.5); CHOL/HDL RATIO 8.5 (4.2-7.3); CREATININE 2.4 mg/dL (0.60-1.30); POTASSIUM 4.1 mmol/L (3.5-5.1)
== END | disposition home or self-care (01) ==
LOC: LABPV 08:55
PROVIDERS: ATTEND Internal Medicine Nephrology
DX: I10 Essential (primary) hypertension (principal); N01.9 Rapidly progressive nephritic syndrome with unspecified morphologic changes; R80.9 Proteinuria, unspecified; R31.9 Hematuria, unspecified
CPT/HCPCS: 82570; 84156; 85014; 85018

== ENCOUNTER → 2017-09-09 | Outpatient (CLI) | payer OTHER ==
[2017-09-09 11:45] LABS: HEMATOCRIT 32.2 % (41-53); HEMOGLOBIN 10.6 g/dL (13.5-17.5)
[2017-09-09 11:56] LABS: APPEARANCE,URINE CLEAR (CLEAR); BILIRUBIN,URINE NEGATIVE (NEGATIVE); GLUCOSE, URINE (UA) NEGATIVE (NEGATIVE); KETONES,URINE NEGATIVE (NEGATIVE); LEUKOCYTE ESTERASE ,URINE NEGATIVE (NEGATIVE); NITRATE,URINE NEGATIVE (NEGATIVE); OCCULT BLOOD,URINE SMALL (NEGATIVE); PROTEIN,URINE SEE CONFIRM (NEGATIVE); UROBILINOGEN,URINE 0.2 mg/dL (<=1.0)
[2017-09-09 12:00] LABS: SULFOSALICYLIC ACID,URINE 4+ (Negative)
[2017-09-09 12:02] LABS: BACTERIA,URINE Few /HPF (None Seen); SQUAMOUS EPITHELIAL CELL,UR Few /LPF (None Seen); WBC,URINE 0-2 /HPF (0-5)
[2017-09-09 12:03] LABS: FINE GRANULAR CASTS,URINE 0-2 /LPF (None Seen)
[2017-09-09 12:13] LABS: CHOL/HDL RATIO 7.5 (4.2-7.3); CREATININE 3.73 mg/dL (0.60-1.30); PHOSPHORUS 4.7 mg/dL (2.5-4.9); POTASSIUM 4.8 mmol/L (3.5-5.1)
== END | disposition home or self-care (01) ==
LOC: LABPV 09:13
PROVIDERS: ATTEND Internal Medicine Nephrology
DX: I10 Essential (primary) hypertension (principal); R80.9 Proteinuria, unspecified; R31.9 Hematuria, unspecified; N01.9 Rapidly progressive nephritic syndrome with unspecified morphologic changes
CPT/HCPCS: 83970; 84100; 85014; 85018

== ENCOUNTER → 2017-11-18 | Outpatient (CLI) | payer OTHER ==
[2017-11-18 13:04] LABS: BASOPHILS % (AUTO) 0.3 % (0.0-2.0); EOSINOPHILS % (AUTO) 4.2 % (1.0-6.0); LYMPHOCYTES # (AUTO) 2.4 K/uL (1.0-4.8); LYMPHOCYTES % (AUTO) 21.5 % (22.0-44.0); MEAN CORPUSCULAR HEMOGLOBIN 28.9 pg (26.0-34.0); MEAN CORPUSCULAR HGB CONC 32.3 G/dL (31.0-37.0); MEAN CORPUSCULAR VOLUME 90 fL (80-100); NEUTROPHILS # (AUTO) 7.2 K/uL (1.8-7.7); PLATELET COUNT (AUTO) 351 K/uL (150-450); RED CELL DISTRIBUTION WIDTH 14.8 % (11.5-14.5)
[2017-11-18 13:17] LABS: ALBUMIN 3.5 g/dL (3.4-5.0); BILIRUBIN,TOTAL 0.2 mg/dL (0.1-1.0); CALCIUM, TOTAL 8.9 mg/dL (8.8-10.5); CHOL/HDL RATIO 3.8 (4.2-7.3); CREATININE 2.97 mg/dL (0.60-1.30); POTASSIUM 4.6 mmol/L (3.5-5.1); TOTAL PROTEIN, SERUM 6.7 g/dL (6.4-8.2)
[2017-11-18 18:12] LABS: CREATININE,URINE 66.3 mg/dL (30.0-125.0)
[2017-11-18 18:17] LABS: CREATININE,SERUM FOR CRCL 2.97 mg/dL (0.60-1.30)
== END | disposition home or self-care (01) ==
LOC: LABPV 08:15
PROVIDERS: ATTEND Internal Medicine Nephrology
DX: I42.9 Cardiomyopathy, unspecified (principal); E78.5 Hyperlipidemia, unspecified; R80.9 Proteinuria, unspecified
CPT/HCPCS: 81050; 82575; 84156; 84300

== ENCOUNTER → 2018-01-27 | Outpatient (CLI) | payer OTHER ==
[2018-01-27 11:32] LABS: HEMATOCRIT 31.2 % (41-53); HEMOGLOBIN 10.5 g/dL (13.5-17.5)
[2018-01-27 12:29] LABS: ALBUMIN 3.5 g/dL (3.4-5.0); BILIRUBIN,TOTAL 0.2 mg/dL (0.1-1.0); CALCIUM, TOTAL 8.2 mg/dL (8.8-10.5); CREATININE 4.03 mg/dL (0.60-1.30); POTASSIUM 5.5 mmol/L (3.5-5.1); TOTAL PROTEIN, SERUM 7.2 g/dL (6.4-8.2)
== END | disposition home or self-care (01) ==
LOC: LABPV 08:31
PROVIDERS: ATTEND Internal Medicine Nephrology
DX: I10 Essential (primary) hypertension (principal); R31.9 Hematuria, unspecified; R80.9 Proteinuria, unspecified; N01.9 Rapidly progressive nephritic syndrome with unspecified morphologic changes; I42.9 Cardiomyopathy, unspecified; D56.5 Hemoglobin E-beta thalassemia
CPT/HCPCS: 85014; 85018

== ENCOUNTER → 2018-04-13 | Outpatient (CLI) | payer OTHER ==
[2018-04-13 09:59] LABS: HEMATOCRIT 31.7 % (41-53); HEMOGLOBIN 10.8 g/dL (13.5-17.5)
[2018-04-13 10:03] LABS: CALCIUM, TOTAL 8.8 mg/dL (8.8-10.5); CREATININE 4.03 mg/dL (0.60-1.30); POTASSIUM 5.2 mmol/L (3.5-5.1)
[2018-04-13 10:18] LABS: CREATININE,SERUM FOR CRCL 4.03 mg/dL (0.60-1.30); CREATININE,URINE 57.4 mg/dL (30.0-125.0)
== END | disposition home or self-care (01) ==
LOC: LABPV 08:38
PROVIDERS: ATTEND Internal Medicine Nephrology
DX: I10 Essential (primary) hypertension (principal); R80.9 Proteinuria, unspecified; N01.9 Rapidly progressive nephritic syndrome with unspecified morphologic changes
CPT/HCPCS: 82575; 84156; 85014; 85018

== ENCOUNTER → 2018-07-20 | Outpatient (CLI) | payer OTHER ==
[2018-07-20 10:38] LABS: HEMATOCRIT 31.7 % (41-53); HEMOGLOBIN 10.8 g/dL (13.5-17.5)
[2018-07-20 10:46] LABS: CALCIUM, TOTAL 8.6 mg/dL (8.8-10.5); CREATININE 4.54 mg/dL (0.60-1.30); PHOSPHORUS 4.8 mg/dL (2.5-4.9); POTASSIUM 5.8 mmol/L (3.5-5.1)
[2018-07-21 09:54] LABS: CREATININE,URINE 46.4 mg/dL (30.0-125.0)
[2018-07-21 09:55] LABS: CREATININE,SERUM FOR CRCL 4.54 mg/dL (0.60-1.30)
== END | disposition home or self-care (01) ==
LOC: LABPV 09:06
PROVIDERS: ATTEND Internal Medicine Nephrology
DX: I10 Essential (primary) hypertension (principal); N01.9 Rapidly progressive nephritic syndrome with unspecified morphologic changes; R80.9 Proteinuria, unspecified; R31.9 Hematuria, unspecified; R79.89 Other specified abnormal findings of blood chemistry
CPT/HCPCS: 82575; 83970; 84100; 85014; 85018

== ENCOUNTER → 2018-09-27 | Outpatient (CLI) | payer OTHER ==
[2018-09-27 10:32] LABS: APPEARANCE,URINE CLEAR (CLEAR); BILIRUBIN,URINE NEGATIVE (NEGATIVE); GLUCOSE, URINE (UA) NEGATIVE (NEGATIVE); KETONES,URINE NEGATIVE (NEGATIVE); LEUKOCYTE ESTERASE ,URINE NEGATIVE (NEGATIVE); NITRATE,URINE NEGATIVE (NEGATIVE); OCCULT BLOOD,URINE SMALL (NEGATIVE); PROTEIN,URINE SEE CONFIRM (NEGATIVE); UROBILINOGEN,URINE 0.2 mg/dL (<=1.0)
[2018-09-27 10:34] LABS: HEMATOCRIT 29.1 % (41-53); HEMOGLOBIN 9.7 g/dL (13.5-17.5)
[2018-09-27 10:45] LABS: CALCIUM, TOTAL 8.3 mg/dL (8.8-10.5); CHOL/HDL RATIO 5.9 (4.2-7.3); CREATININE 4.7 mg/dL (0.60-1.30)
[2018-09-27 10:45] LABS: SULFOSALICYLIC ACID,URINE 3+ (Negative)
[2018-09-27 10:46] LABS: BACTERIA,URINE Rare /HPF (None Seen); SQUAMOUS EPITHELIAL CELL,UR Rare /LPF (None Seen); WBC,URINE 0-2 /HPF (0-5)
== END | disposition home or self-care (01) ==
LOC: LABPV 09:12
PROVIDERS: ATTEND Internal Medicine Nephrology
DX: I13.0 Hypertensive heart and chronic kidney disease with heart failure and stage 1 through stage 4 chronic kidney disease, or unspecified chronic kidney disease (principal); E11.22 Type 2 diabetes mellitus with diabetic chronic kidney disease; N18.4 Chronic kidney disease, stage 4 (severe); I50.9 Heart failure, unspecified; E78.5 Hyperlipidemia, unspecified; D63.1 Anemia in chronic kidney disease
CPT/HCPCS: 85014; 85018

== ENCOUNTER → 2018-10-21 | Outpatient (CLI) | payer OTHER ==
[2018-10-21 12:08] LABS: CALCIUM, TOTAL 8.5 mg/dL (8.8-10.5); CREATININE 5.47 mg/dL (0.60-1.30); POTASSIUM 5.3 mmol/L (3.5-5.1)
== END | disposition home or self-care (01) ==
LOC: LABPV 08:35
PROVIDERS: ATTEND Internal Medicine Nephrology
DX: I13.0 Hypertensive heart and chronic kidney disease with heart failure and stage 1 through stage 4 chronic kidney disease, or unspecified chronic kidney disease (principal); E11.22 Type 2 diabetes mellitus with diabetic chronic kidney disease; N18.4 Chronic kidney disease, stage 4 (severe); I50.9 Heart failure, unspecified

== ENCOUNTER → 2019-04-07 | Outpatient (CLI) | payer OTHER ==
[~2019-04-07] MED LIST changes: -AMLO-511 PO; +AMLO5TAB9 PO; -LABE100 PO; +LABE100T8 PO
[2019-04-07 11:22] LABS: HEMATOCRIT 30.3 % (41-53); HEMOGLOBIN 10.2 g/dL (13.5-17.5)
[2019-04-07 11:52] LABS: ALBUMIN 4.1 g/dL (3.4-5.0); BILIRUBIN,TOTAL 0.3 mg/dL (0.1-1.0); CALCIUM, TOTAL 8.6 mg/dL (8.8-10.5); CREATININE 6.46 mg/dL (0.60-1.30); POTASSIUM 5.7 mmol/L (3.5-5.1); TOTAL PROTEIN, SERUM 7.6 g/dL (6.4-8.2)
[2019-04-07 12:15] LABS: APPEARANCE,URINE CLEAR (CLEAR); BILIRUBIN,URINE NEGATIVE (NEGATIVE); GLUCOSE, URINE (UA) NEGATIVE (NEGATIVE); KETONES,URINE NEGATIVE (NEGATIVE); LEUKOCYTE ESTERASE ,URINE NEGATIVE (NEGATIVE); NITRATE,URINE NEGATIVE (NEGATIVE); OCCULT BLOOD,URINE MODERATE (NEGATIVE); PH,URINE 5.5 (5.0-8.0); PROTEIN,URINE SEE CONFIRM (NEGATIVE); UROBILINOGEN,URINE 0.2 mg/dL (<=1.0)
[2019-04-07 12:36] LABS: SULFOSALICYLIC ACID,URINE 3+ (Negative)
[2019-04-07 12:38] LABS: BACTERIA,URINE None Seen /HPF (None Seen); RBC,URINE 0-2 /HPF (0-2); SQUAMOUS EPITHELIAL CELL,UR Rare /LPF (None Seen); WBC,URINE 0-2 /HPF (0-5)
== END | disposition home or self-care (01) ==
LOC: LABPV 08:41
PROVIDERS: ATTEND Internal Medicine Nephrology
DX: I12.0 Hypertensive chronic kidney disease with stage 5 chronic kidney disease or end stage renal disease (principal); N18.5 Chronic kidney disease, stage 5; D63.1 Anemia in chronic kidney disease
CPT/HCPCS: 83970; 84100; 85014; 85018

== ENCOUNTER → 2019-06-30 | Outpatient (CLI) | payer OTHER ==
[2019-06-30 12:52] LABS: HEMATOCRIT 36.4 % (41-53); HEMOGLOBIN 11.9 g/dL (13.5-17.5)
[2019-06-30 13:04] LABS: ALBUMIN 4.1 g/dL (3.4-5.0); BILIRUBIN,TOTAL 0.2 mg/dL (0.1-1.0); CALCIUM, TOTAL 8.5 mg/dL (8.8-10.5); CREATININE 6.82 mg/dL (0.60-1.30); PHOSPHORUS 4.5 mg/dL (2.5-4.9); TOTAL PROTEIN, SERUM 7.9 g/dL (6.4-8.2)
[2019-06-30 13:32] LABS: POTASSIUM 6.1 mmol/L (3.5-5.1)
== END | disposition home or self-care (01) ==
LOC: LABPV 08:49
PROVIDERS: ATTEND Internal Medicine Nephrology
DX: E78.5 Hyperlipidemia, unspecified (principal); D63.1 Anemia in chronic kidney disease; I12.0 Hypertensive chronic kidney disease with stage 5 chronic kidney disease or end stage renal disease; N18.5 Chronic kidney disease, stage 5
CPT/HCPCS: 83970; 84100; 85014; 85018

== ENCOUNTER → 2019-09-12 | Outpatient (CLI) | payer OTHER ==
[2019-09-12 10:08] LABS: HEMATOCRIT 32.9 % (41-53); HEMOGLOBIN 10.9 g/dL (13.5-17.5)
[2019-09-12 10:19] LABS: CALCIUM, TOTAL 7.6 mg/dL (8.8-10.5); CREATININE 7.91 mg/dL (0.60-1.30); POTASSIUM 5.3 mmol/L (3.5-5.1)
== END | disposition home or self-care (01) ==
LOC: LABPV 08:11
PROVIDERS: ATTEND Internal Medicine Nephrology
DX: N18.5 Chronic kidney disease, stage 5 (principal); D63.1 Anemia in chronic kidney disease
CPT/HCPCS: 85014; 85018

== ENCOUNTER → 2020-03-13 | Outpatient (CLI) | payer OTHER ==
[~2020-03-13] MED LIST changes: +AMLO-257 PO; -AMLO5TAB9 PO; +MYCO250C27 PO; -MYCO250C7 PO
[2020-03-13 12:04] LABS: HEMATOCRIT 22.6 % (41-53); HEMOGLOBIN 7.9 g/dL (13.5-17.5)
[2020-03-13 12:35] LABS: CREATININE 15.4 mg/dL (0.60-1.30); PHOSPHORUS 7.9 mg/dL (2.5-4.9); POTASSIUM 5.9 mmol/L (3.5-5.1)
== END | disposition home or self-care (01) ==
LOC: LABMN 11:27
PROVIDERS: ATTEND Internal Medicine Nephrology
DX: N18.5 Chronic kidney disease, stage 5 (principal); D63.1 Anemia in chronic kidney disease
CPT/HCPCS: 83970; 84100; 85014; 85018